=== PATIENT | female | born 1945 | race Hispanic/Latino ===

== ENCOUNTER 2019-12-26 09:12 | Observation (INO) | payer MEDICARE, OTHER ==
[~2019-12-26] VITALS: Ht 147.3 cm; Wt 40.8 kg
[~2019-12-26 09:12] MED LIST: ASCORBIC ACID500 MG PO; ASPIRIN81 MG PO; ATORVASTATIN CA10 MG PO; CLOPIDOGREL75 MG PO; Calcium Carbonate PO; FAMOTIDINE20 MG PO; FEOSOL325 MG PO; GABAPENTIN100 MG PO; JANUVIA100 MG PO; LANTUS 3ML100 UNITS/ SC; LEVOTHYROXINE75 MCG PO; LISINOPRIL2.5 MG PO; METOCLOPRAMIDE10 MG PO; METOPROLOL TART25 MG PO; Multivitamins/Minerals PO; PANTOPRAZOLE SO40 MG PO
--- OUTSIDE RECORDS SUMMARY | 2019-12-26 09:24 | XMS REPORT | Continuity of Care Document ---
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 Name Role Phone Ayi Laile Information [employer] Unavailable Un available Problems Problem Status Onset Date Classification Date Reported Comments Source R07.89 - OTHER CHEST PAIN Acti ve 08/18/2016 [facility] R92.8 - OTH ABN AND INCONCLUSIVE FINDI Active 05/27/2015 [facility] Diabetic retinopathy of both eyes associ ated with diabetes mellitus of other type, macular edema presence unspecified, unspecified retinopathy severity Active Diagnosis 01/17/2017 [id number] Gastroesophageal reflux disease, esophag itis presence not specified Active Prob nory 01/17/2017 2.840.1.150252.4.391.11.92529 Severe protein-calorie malnutrition Active Problem 2.840.1.198736.4.391.11.2 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 Active Problem 2.840.1.326254.4.391.11.2 2568 Type 2 diabetes mellitus with hyperglycemia Active Problem 01/17/2017 2.840.1.622891.4.391.11.65363 Hypothyroidism, unspecified type Active Problem 2.840.1.877609.4.391.11.2 2568 Osteoporosis without current pathologica l fracture, unspecified osteoporosis type Active Problem 01/17/2017 2.840.1.602280.4.391.11.39158 Other and unspecified hyperlipidemia Active Problem 2.16840.1.767530.4.391.11.2 2568 Hypotension, unspecified hypotension type Active Problem 01/17/2017 2.840.1.127962.4.391.11.22815 Encounter for immunization Act jennie Diagnosis 0 01/17/2017 2.16.840.1.055361.4.391.11.2 2568 Type 2 diabetes mellitus with hyperglyce mel[place], without long-term current use of insulin Active Diagnosis 12/23/2016 2.840.1.550430.4.391.11.83385 Encounter for general adult medical exam ination with abnormal findings Active Diag nosis 12/23/2016 2.840.1.762751.4.391.11.60597 BMI less than 19,adult Active Diagnosis 12/23/2016 2.0.1.808020.4.391.11.2 2568 Medications Medication Details Route Status Patient Instructions Ordering Provider Order Date Source Zantac 1 tablet at bedtime Orally Active 150 MG Orally Once a day Montez 12/19/2016 2.0.1.356839.4.391.11.42677 Naprosyn 1 tablet Orally Active 250 MG Orally Twice a d ay Montez 12/19/2016.0.1.081526.4.391.11.38392 NovoLog Flexpen Inject Subcutaneous Active 100 UNIT/ML Subcutaneous 8 units tid Montez 06.16.830.1.321608.4.391 Metoclopramide HCl 1 tablet by mouth Active 10 MG by mouth daily Montez 06.16.830.1.772307.4.391 Midodrine HCl 1 tablet Orally Active 2.5 MG Orally Three josé miguel es a day Montez 06.16.830.1.216930.4.391.11 Lantus SoloStar Inject Subcutaneous Active 100 UNIT/ML Subcutaneous 20 units in the am and 10 units in pm Montez 06.16.830.1.432379.4.391.11 Pravastatin Sodium 1 tablet Orally Active 10 MG Orally Once a day Montez 06.16.830.1.413122.4.391.11 Levothyroxine Sodium 1 tablet on an empty stomach in the morning Orally Active 88 MCG Orally Once a day Montez 06.16.830.1.025780.4.391.11.2 2568 Pantoprazole Sodium 1 tablet Orally Active 40 MG Orally Once a day Montez 2.16.840.1.004332.4.391.11.83070 Allergies, Adverse Reactions, Alerts Substance Category Reaction Severity Reaction type Status Date Reported Comments Source N.K.D.A. Adverse Reaction Info Not Available Adverse Reaction Active 01/11/2017 2..840.1.215162.4.391.11.2 2568 Immunizations Immunization Date Given Site Status Last Updated Comments Source FLU VACCINE NO PRESERV 3 & > 0 01/11/2017 completed 2..840.1.143411.4.391.11.2 2568 Results No Data Provided for This Section Pathology Reports No Data Provided for This Section Diagnostic Reports Report Value Date Source Retroperitoneal Complete US Ex am: RETROPERITONEAL ULTRASOUND. Reason for Exam: - N18.3 Chronic kidney disease, stage 3 (moderate) Comparison Exam: None Discussion: Multiplanar grayscale and color Doppler ultrasound of the kidneys, aorta, IVC, and urinary bladder. Right kidney: Size: 8.5 cm. Cortical thickness measures 0.7 cm. Hydronephrosis: None. Echogenicity: Increased Calculi/Cysts/Masses: None. Ureter: none visualized Left kidney: Size: 8.2 cm. Cortical thickness measures 1.0 cm. Hydronephrosis: None. Echogenicity: Increased Calculi/Cysts/Masses: None. Ureter: none visualized Bladder: unremarkable. Both ureteral jets are patent. IMPRESSION: Renal parenchymal echogenicity is increased bilaterally, in keeping with medical renal disease. 12/06/2019 RISHABH Bryana Ribs unilateral DX EXAM: Ribs unilateral DX HISTORY: - M54.6 Pain in thoracic spine COMPARISON: 08/18/2016 Left rib series IMPRESSION: There is a chronic healed left lateral 5th rib deformity. 11/13/2019 [facility] Spine thoracic 3 views DX EXAM : Spine thoracic 3 views DX HISTORY: - M54.6 Pain in thoracic spine COMPARISON: 03/17/2017 AP, lateral and swimmer's views of the thoracic spine. FINDINGS: There is mild to moderate diffuse disc space narrowing. Advanced C4-C7 disc space narrowing. Osteopenia. No fracture or focal osseous lesion is seen. IMPRESSION: Discogenic degenerative change. 11/13/2019 [facility] Breast Mammo Scrn JOHNSON w hattie incl CAD MA BILATERAL DIGITAL SCREENING MAMMOGRAM 3D/2D WITH CAD: 10/08/2019 CLINICAL: Z12.31 Encounter For Screening Mammogram For Malignant Neoplasm Of Breast/Z12.31 Encounter For Screening Mammogram For Malignant Neoplasm Of Breast. Current study was evaluated with a Computer Aided Detection (CAD) system. COMPARISON:Comparison is made to exams dated: 10/06/2017 mammogram, 07/15/2016 mammogram, and 06/18/2015 mammogram - [facility]. TECHNIQUE: Digital Breast Tomosynthesis was performed and utilized for Interpretation. Current study was also evaluated with a Computer Aided Detection (CAD) system. FINDINGS: There are scattered fibroglandular densities in both breasts. There are benign vascular calcifications in both breasts. No significant masses, calcifications, or other findings are seen in either breast. There has been no significant interval change. IMPRESSION: BENIGN RECOMMENDATION:There is no mammographic evidence of malignancy. A 1 year screening mammogram is recommended.(10/08/2020) This exam was interpreted at [id number] for GENEVIEVE Ware. Professional services are provided by the [facility]. Jeri Brand M.D. ms/penrad:10/08/2019 14:11:12 J[employer]Ee Software Engineer(s): RT Marla(R)(M), [facility] letter sent: BI-RADS 1/2 Mammogram BI-RADS: 2 Benign 10/08/2019 RISHABH Gonzales Bone Density DXA Dual Energy MA BONE DENSITY ASSESSMENT: 10/08/2019 CLINICAL DATA: Post menopausal and clinical risk for osteoporosis. M81.0 Age- related osteoporosis without current pathological fracture. M81.0 Age-Related Osteoporosis Without Current Pathological Fracture/M81.0 Age-Related Osteoporosis Without Current Pathological Fracture DISEASE HISTORY: Type 1 diabetes. COMPARISON: 10/06/2017 Left hip using a Hologic unit from [facility] with reported high fracture risk, BMD of 0.638g/cm2, T-score of -2.50, and Z-score of -0.70. 10/06/2017 Right hip using a Hologic uni t from [facility] with reported high fracture risk, BMD of 0.562g/cm2, T-score of -3.10, and Z-score of -1.30. 10/06/2017 AP L1-L4 region of spine chidi aguirre a Hologic unit from [facility] with reported high fracture risk, BMD of 0.643g/cm2, T-score of -3.70, and Z-score of -1.40. FINDINGS: Bone density evaluation was performed 10/08/2019 on the right femur neck using a Hologic unit. The BMD average for the exam is 0.394 g/cm2. The T-score is -4.10 and the Z-score is -2.00. This matches the World Health Organization's criteria for osteoporosis and places the patient at a high risk for fracture. An additional bone density evaluation was performed 10/08/2019 on the left femur neck using a Hologic unit. The BMD average for the exam is 0.444 g/cm2. The T- score is -3.70 and the Z-score is -1.60. This matches the World Health Organization's criteria for osteoporosis and places the patient at a high risk for fracture. An additional bone density evaluation was performed 10/08/2019 on the right hip using a Hologic unit. The BMD average for the exam is 0.531 g/cm2. The T-score is -3.40 and the Z-score is -1.40. Since the previous similar exam of 10/06/2017, there has been a -0.031 or -5.5% change in the BMD value which represents no significant interval change in bone density. This matches the World Health Organization's criteria for osteoporosis and places the patient at a high risk for fracture. An additional bone density evaluation was performed 10/08/2019 on the left hip using a Hologic unit. The BMD average for the exam is 0.570 g/cm2. The T-score is -3.00 and the Z-score is -1.10. Since the previous similar exam of 10/06/2017, there has been a -0.068 or -10.7% change in the BMD value which represents no significant interval change in bone density. This matches the World Health Organization's criteria for osteoporosis and places the patient at a high risk for fracture. An additional bone density evaluation was performed 10/08/2019 on the AP L1-L4 region of spine using a Hologic unit. The BMD average for the exam is 0.730 g/cm2. The T-score is -2.90 and the Z-score is -0.50. Since the previous similar exam of 10/06/2017, there has been a +0.087 or +13.5% change in the BMD value which represents no significant interval change in bone density. This matches the World Health Organization's criteria for osteoporosis and places the patient at a high risk for fracture. IMPRESSION: OSTEOPOROSIS Patient is at high risk for fracture. Patient consult w/primary care provider is recommended. This exam was interpreted at [id number] for GENEVIEVE Ware. Jeri Brand M.D. ms/penrad:10/08/2019 14:09:48 J2Ee Software Engineer(s): Kat Worrell RT(R)(M), [facility] 10/08/2019 RISHABH Gonzales Bone Density DXA [employer] MA BONE DENSITY ASSESSMENT: 10/06/2017 CLINICAL DATA: Post menopausal and clinical risk for osteoporosis. M81.0 Age- related osteoporosis without current pathological fracture. Age-Related Osteoporosis Without Current Pathological Fracture/M81.0 COMPARISON: 03/18/2016 Right hip using a Hologic uni t from [facility] with reported high fracture risk, BMD of 0.549g/cm2, T-score of -3.20, and Z-score of -1.50. 03/18/2016 Left hip using a Hologic unit from [facility] with reported high fracture risk, BMD of 0.618g/cm2, T-score of -2.70, and Z-score of -1.00. 03/18/2016 AP L1-L4 region of spine usin g a Hologic unit from [facility] with reported high fracture risk, BMD of 0.656g/cm2, T-score of -3.60, and Z-score of -1.30. FINDINGS: Bone density evaluation was performed 10/06/2017 on the right femur neck using a Hologic unit. The BMD average for the exam is 0.461 g/cm2. The T-score is -3.50 and the Z-score is -1.50. This matches the World Health Organization's criteria for osteoporosis and places the patient at a high risk for fracture. An additional bone density evaluation was performed 10/06/2017 on the left femur neck using a Hologic unit. The BMD average for the exam is 0.475 g/cm2. The T- score is -3.40 and the Z-score is -1.40. This matches the World Health Organization's criteria for osteoporosis and places the patient at a high risk for fracture. An additional bone density evaluation was performed 10/06/2017 on the right hip using a Hologic unit. The BMD average for the exam is 0.562 g/cm2. The T-score is -3.10 and the Z-score is -1.30. Since the previous similar exam of 03/18/2016, there has been a +0.013 or +2.4% change in the BMD value which represents no significant interval change in bone density. This matches the World Health Organization's criteria for osteoporosis and places the patient at a high risk for fracture. An additional bone density evaluation was performed 10/06/2017 on the left hip using a Hologic unit. The BMD average for the exam is 0.638 g/cm2. The T-score is -2.50 and the Z-score is -0.70. Since the previous similar exam of 03/18/2016, there has been a +0.020 or +3.2% change in the BMD value which represents no significant interval change in bone density. This matches the World Health Organization's criteria for osteoporosis and places the patient at a high risk for fracture. An additional bone density evaluation was performed 10/06/2017 on the AP L1-L4 region of spine using a Hologic unit. The BMD average for the exam is 0.643 g/cm2. The T-score is -3.70 and the Z-score is -1.40. Since the previous similar exam of 03/18/2016, there has been a -0.013 or -2.0% change in the BMD value which represents no significant interval change in bone density. This matches the World Health Organization's criteria for osteoporosis and places the patient at a high risk for fracture. IMPRESSION: OSTEOPOROSIS Patient is at high risk for fracture. Patient consult w/primary care provider is recommended. This exam was interpreted at [id number] at [facility]. Jeri Brand M.D., ms/alireza:10/06/2017 11:56:01 J2Ee Software Engineer(s): Kat Worrell RT(R)(M), [facility] 10/06/2017 RISHABH Gonzales Breast Mammo Scrn JOHNSON incl CAD MA BILATERAL DIGITAL SCREENING MAMMOGRAM WITH CAD: 10/06/2017 CLINICAL: Encounter For Screening Mammogram For Malignant Neoplasm Of Breast/Z12.31. Current study was evaluated with a Computer Aided Detection (CAD) system. COMPARISON:Comparison is made to exams dated: 07/15/2016 mammogram, 06/18/2015 mammogram, and 03/13/2014 mammogram - [facility]. TECHNIQUE: Mammographic views were obtained using digital acquisition. Current study was also evaluated with a Computer Aided Detection (CAD) system. FINDINGS: The tissue of both breasts is almost entirely fat. No significant masses, calcifications, or other findings are seen in either breast. There has been no significant interval change. IMPRESSION: NEGATIVE RECOMMENDATION:There is no mammographic evidence of malignancy. A 1 year screening mammogram is recommended.(10/07/2018) This exam was interpreted at [id number] at [facility]. Professional services are provided by the [facility]. Mariah Knox M.D. 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 Sagittal and coronal reconstructions are provided. AEC, mA/kV adjustment by patient size, and/or iterative reconstruction technique were used, per departmental dose-optimization program. DLP: 351 mGy-cm FINDINGS: Lines and tubes: None Lower neck: Visualized portions are unremarkable. Heart: Three-vessel coronary artery calcifications. No cardiomegaly. No pericardial effusion. Lungs: The trachea and major bronchi are patent. There are mild bilateral dependent atelectatic changes. The lungs are otherwise clear. There is no pleural effusion. Liver and biliary tree: Unremarkable Gallbladder: Unremarkable. No CT evidence of gallstones. Pancreas: Unremarkable. Spleen: Unremarkable. Adrenals: Unremarkable. Kidneys and ureters: Punctate bilateral nonobstructing renal calculi. Otherwise unremarkable. No hydronephrosis. Bladder: Unremarkable. Reproductive organs: Hysterectomy. Unremarkable adnexa. Gastrointestinal tract: Unremarkable with normal caliber. Appendix: Normal Peritoneum and retroperitoneum: No ascites or free air. Lymph nodes: No pathologic adenopathy. Vasculature: Moderate vascular calcification throughout Bones: No acute abnormality. Soft tissues: Moderately edematous. Marked pelvic floor muscular thinning with descent of all 3 compartments. IMPRESSION: 1. Diffuse soft tissue edema. Correlate clinically. 2. Nonobstructing nephrolithiasis. 3. Hysterectomy. 03/28/2017 OPI[facility]azmine [facility] Spine lumbar series DX EXAM: [facility] lumbar series DX HISTORY: - M54.5 Low back pain COMPARISON: 08/12/2011 AP, lateral and oblique views of the lumbar spine. AP alignment is normal. There is no vertebral body height loss. The bones appear osteopenic. There is mild to moderate disc space narrowing and facet arthropathy at L5-S1. Partial sacralization of L5 again noted. IMPRESSION: No acute radiographic abnormality. Lumbosacral degenerative change. 03/17/2017 [facility] [place] Spine thoracic 3 views DX EXAM : Spine thoracic 3 views DX HISTORY: - M54.5 Low back pain COMPARISON: None AP and lateral views of the thoracic spine. FINDINGS: No vertebral body height loss is seen. There is mild to moderate multilevel discogenic degenerative change throughout the thoracic spine and the visualized cervical spine. No focal osseous lesion is seen. AP alignment is normal. IMPRESSION: Mild to moderate discogenic degenerative changes throughout the thoracic spine. 03/17/2017 [facility] Hip 2/3 views uni DX Exam: Ri t hip x-ray, 2 views Reason for Exam: - M25.551 Pain in right hip Comparison Exam: None Discussion: No fractures or dislocations are seen within the right hip. No suspicious osteoblastic or osteolytic lesions. The femoral acetabular joint is intact. No evidence for avascular necrosis of the femoral head. The visualized portions of the pubic symphysis and SI joint are unremarkable. Impression: 1. No acute bony abnormalities identifi ed. 12/13/2016 RISHABH Gonzales Ribs unilateral DX EXAM: Ribs unilateral DX HISTORY: R07.89 Other chest pain, R/o rib cage pathology/pain COMPARISON: None Left rib series. IMPRESSION: No rib fracture or rib lesion is seen. The visualized lungs are clear. 08/18/2016 RISHABH Gonzales Breast Mammo Scrn JOHNSON incl CAD MA - BREAST MAMMO SCRN JOHNSON INCL CAD MA BILATERAL DIGITAL SCREENING MAMMOGRAM WITH CAD: 07/15/2016 CLINICAL: Routine. Current study was evaluated with a Computer Aided Detection (CAD) system. Comparison is made to exams dated: 06/18/2015 mammogram, 03/13/2014 mammogram, 08/12/2013 mammogram, 02/06/2013 mammogram, 01/11/2013 mammogram and 11/25/2011 mammogram - [facility]. There are scattered fibroglandular densities in both breasts. There are benign vascular calcifications in both breasts. There also is a benign intramammary node in the left breast. No significant masses, calcifications, or other findings are seen in either breast. There has been no significant interval change. IMPRESSION: BENIGN There is no mammographic evidence of malignancy. A 1 year screening mammogram is recommended. Professional services are provided by the [facility]. Marc archibald/penrad:07/15/2016 14:01:12 J2Ee Software Engineer: Kat BOBO(R)(M), [facility] This exam was dictated and interpreted by [id number] for GENEVIEVE Everett. letter sent: Normal exam Mammogram BI-RADS: 2 Benign 07/15/2016 RISHABH Gonzales Foot series DX EXAMINATION: Le ft foot series. HISTORY: Lateral left foot pain status post trauma; left fourth toe osteoarthritis FINDINGS: 3 view nonweightbearing examination of the left foot is performed and compared to 11/10/2014. There are no acute fractures or dislocations. There are apparent postoperative changes of interval resection arthroplasty at the distal interphalangeal joint of the fourth toe. The remaining joint spaces are normal. There is no ankle effusion. There are no radiopaque foreign bodies identified. IMPRESSION: 1. No acute fracture or dislocation of t he left foot. 2. Apparent postoperative changes of int erval resection arthroplasty at the left fourth toe distal interphalangeal joint. 04/01/2016 RISHABH Gonzales Bone Density DXA [employer] MA - Bone Density DXA [employer] MA BONE DENSITY EVALUATION: 03/18/2016 CLINICAL DATA: Post menopausal. FINDINGS: Bone density evaluation was performed 03/18/2016 on the AP L1-L4 region of spine using a Hologic unit. The BMD average for the exam is 0.656 g/cm2. The T-score is -3.60 and the Z-score is -1.30. This matches the World Health Organization's criteria for osteoporosis and places the patient at a high risk for fracture. An additional bone density evaluation was performed 03/18/2016 on the right femur neck using a Hologic unit. The BMD average for the exam is 0.382 g/cm2. The T-score is -4.20 and the Z-score is -2.30. This matches the World Health Organization's criteria for osteoporosis and places the patient at a high risk for fracture. An additional bone density evaluation was performed 03/18/2016 on the right hip using a Hologic unit. The BMD average for the exam is 0.549 g/cm2. The T-score is -3.20 and the Z-score is -1.50. This matches the World Health Organization's criteria for osteoporosis and places the patient at a high risk for fracture. An additional bone density evaluation was performed 03/18/2016 on the left femur neck using a Hologic unit. The BMD average for the exam is 0.436 g/cm2. The T- score is -3.70 and the Z-score is -1.80. This matches the World Health Organization's criteria for osteoporosis and places the patient at a high risk for fracture. An additional bone density evaluation was performed 03/18/2016 on the left hip using a Hologic unit. The BMD average for the exam is 0.618 g/cm2. The T-score is -2.70 and the Z-score is -1.00. This matches the World Health Organization's criteria for osteoporosis and places the patient at a high risk for fracture. IMPRESSION: OSTEOPOROSIS Patient is at high risk for fracture. Professional services are provided by the [facility]. This exam was dictated and interpreted by [id number] for BRENDA Ware 15. Mariano Gambino M.D. cm/penrad:03/21/2016 09:26:50 J2Ee Software Engineer: Daya BOBO (R)(Beverley), [facility] 03/18/2016 RISHABH Gonzales Digital Mammo DX Johnson MA - DIGI RONAK MAMMO DX JOHNSON MA BILATERAL DIGITAL DIAGNOSTIC MAMMOGRAM WITH CAD: 06/18/2015 CLINICAL: Abnormal Mammogram. Current study was evaluated with a Computer Aided Detection (CAD) system. Comparison is made to exams dated: 03/13/2014 mammogram, 08/12/2013 mammogram, 02/06/2013 mammogram, 11/25/2011 mammogram, 01/11/2013 mammogram and 11/04/2010 mammogram - [facility]. There are scattered fibroglandular densities in both breasts. There are benign vascular calcifications in both breasts. There also is a benign intramammary node in the left breast. No significant masses, calcifications, or other findings are seen in either breast. There has been no significant interval change. IMPRESSION: BENIGN There is no mammographic evidence of malignancy. A 1 year screening mammogram is recommended. Mariano Gambino M.D., cm/penrad:06/18/2015 11:19:32 J2Ee Software Engineer: Daya BOBO (R)(Beverley), [facility] This exam was dictated and interpreted by [id number] for Janet. letter sent: Normal exam Mammogram BI-RADS: 2 Benign 06/18/2015 RISHABH Gonzales Bone Density DXA Dual [employer] MA - Bone Density DXA Dual Energy MA BONE DENSITY EVALUATION: 11/13/2014 CLINICAL DATA: Post menopausal. COMPARISON: 11/25/2011 Right hip using Nov[employer] Dual En ergy X-Ray Absorptiometry from [facility] with reported high fracture risk, BMD of 0.634g/cm2, T-score of -3.00, Z-score of -1.20 and 81.0% age-match bone mineralization. 11/25/2011 Left hip using Novogenie Dual Purnima rgy X-Ray Absorptiometry from [facility] with reported medium fracture risk, BMD of 0.700g/cm2, T-score of -2.40, Z-score of -0.60 and 90.0% age-match bone mineralization. 11/25/2011 AP L1-L4 region of spine usin g [employer] X-Ray [employer]orptiometry from [facility] with reported high fracture risk, BMD of 0.805g/cm2, T-score of -3.10, Z-score of -0.80 and 89.0% age-match bone mineralization. FINDINGS: Bone density evaluation was performed 11/13/2014 on the AP L1-L4 region of spine using [employer] X-Ray Absorptiometry. The BMD average for the exam is 0.859 g/cm2. The T-score is -2.70 and the Z-score is -0.20. These values indicate 97.0% for age-matched controls. Since the previous similar exam of 11/25/2011, there has been a +0.054 or +6.7% change in the BMD value which represents no significant interval change in bone density. This matches the World Health Organization's criteria for osteoporosis and places the patient at a high risk for fracture. An additional bone density evaluation was performed 11/13/2014 on the right femur neck using [employer] X-Ray Absorptiometry. The BMD average for the exam is 0.500 g/cm2. The T-score is -3.90 and the Z-score is -1.60. These values indicate 69.0% for age-matched controls. This matches the World Health Organization's criteria for osteoporosis and places the patient at a high risk for fracture. An additional bone density evaluation was performed 11/13/2014 on the right hip using [employer] X-Ray Absorptiometry. The BMD average for the exam is 0.587 g/cm2. The T-score is -3.30 and the Z-score is -1.30. These values indicate 79.0% for age-matched controls. Since the previous similar exam of 11/25/2011, there has been a -0.047 or -7.4% change in the BMD value which represents no significant interval change in bone density. This matches the World Health Organization's criteria for osteoporosis and places the patient at a high risk for fracture. An additional bone density evaluation was performed 11/13/2014 on the left femur neck using [employer] X-Ray Absorptiometry. The BMD average for the exam is 0.568 g/cm2. The T-score is -3.40 and the Z-score is -1.10. These values indicate 78.0% for age-matched controls. This matches the World Health Organization's criteria for osteoporosis and places the patient at a high risk for fracture. An additional bone density evaluation was performed 11/13/2014 on the left hip using [employer] X-Ray Absorptiometry. The BMD average for the exam is 0.657 g/cm2. The T-score is -2.80 and the Z-score is -0.70. These values indicate 88.0% for age-matched controls. Since the previous similar exam of 11/25/2011, there has been a -0.043 or -6.1% change in the BMD value which represents no significant interval change in bone density. This matches the World Health Organization's criteria for osteoporosis and places the patient at a high risk for fracture. IMPRESSION: OSTEOPOROSIS Patient is at high risk for fracture. This exam was dictated and interpreted by [id number] for GENEVIEVE Everett. Dr. Christos stock/penrad:11/13/2014 16:46:25 J2Ee Software Engineer: Kat Worrell [facility] 11/13/2014 RISHABH Gonzales Foot series DX EXAM: Foot seri es HISTORY: Left 4th toe edema and pain COMPARISON: None IMPRESSION: There is soft tissue swelling involving the left fourth toe. No periosteal reaction or fracture is identified. 11/10/2014 RISHABH Gonzales Hip bilat w pelvis and both lat hips DX EXAM: Hip bilateral w pelvis and both lat hips HISTORY: Pain hip COMPARISON: None Kidneys of each hip. FINDINGS: There is no significant joint space narrowing bilaterally. No evidence of avascular necrosis. No fracture is seen. No concerning osseous lesion. The pelvic ring appears intact. Vascular calcifications are seen bilaterally. IMPRESSION: No acute abnormality. 11/10/2014 RISHABH Gonzales Breast US - DIGITAL MAMMO DX B [place] - BREAST US/L BILATERAL DIGITAL DIAGNOSTIC MAMMOGRAM WITH CAD AND TARGETED LEFT ULTRASOUND: 03/13/2014 CLINICAL: 611.72: Follow up for a probably benign left breast finding. Current study was evaluated with a Computer Aided Detection (CAD) system. Comparison is made to exams dated: 01/11/2013 mammogram, 02/06/2013 mammogram, 02/06/2013 ultrasound, 08/12/2013 ultrasound, 08/12/2013 mammogram and 08/12/2013 ultrasound - [facility]. There are scattered fibroglandular densities in both breasts. There is a stable mass in the left axillary tail. Targeted ultrasound demonstrates a 4 mm stable oval mass in the left axillary tail. Query lymph node. This correlates with mammography findings. No other significant masses, calcifications, or other findings are seen in either breast on the mammogram or targeted ultrasound. IMPRESSION: PROBABLY BENIGN, TARGETED ULTRASOUND PROBABLY BENIGN The 4 mm stable oval mass is probably benign. Query lymph node. A follow-up mammogram and an ultrasound in 12 months is recommended. SUMMARY: I notified the patient of the results and their significance at the completion of today's examination. Dr. Linsey Fraga D.O. ht/:03/13/2014 10:50:32 J2Ee Software Engineer: Monique Hopson RT(R)(M), [facility] This exam was dictated and interpreted by [id number] for Janet. letter sent: Followup Mammogram BI-RADS: 3 Probably benign Ultrasound BI-RADS: 3 Probably benign 03/13/2014 RISHABH Gonzales Digital Mammo DX [place] - DIGI RONAK MAMMO DX [place] - BREAST US/L BILATERAL DIGITAL DIAGNOSTIC MAMMOGRAM WITH CAD AND TARGETED LEFT ULTRASOUND: 03/13/2014 CLINICAL: 611.72: Follow up for a probably benign left breast finding. Current study was evaluated with a Computer Aided Detection (CAD) system. Comparison is made to exams dated: 01/11/2013 mammogram, 02/06/2013 mammogram, 02/06/2013 ultrasound, 08/12/2013 ultrasound, 08/12/2013 mammogram and 08/12/2013 ultrasound - [facility]. There are scattered fibroglandular densities in both breasts. There is a stable mass in the left axillary tail. Targeted ultrasound demonstrates a 4 mm stable oval mass in the left axillary tail. Query lymph node. This correlates with mammography findings. No other significant masses, calcifications, or other findings are seen in either breast on the mammogram or targeted ultrasound. IMPRESSION: PROBABLY BENIGN, TARGETED ULTRASOUND PROBABLY BENIGN The 4 mm stable oval mass is probably benign. Query lymph node. A follow-up mammogram and an ultrasound in 12 months is recommended. SUMMARY: I notified the patient of the results and their significance at the completion of today's examination. Dr. Linsey Fraga D.O. ht/:03/13/2014 10:50:32 J2Ee Software Engineer: Monique Hopson RT(R)(M), [facility] This exam was dictated and interpreted by [id number] for GENEVIEVE Gonzales. letter sent: Followup Mammogram BI-RADS: 3 Probably benign Ultrasound BI-RADS: 3 Probably benign 03/13/2014 RISHABH Gonzales Bowel small bowel series SMALL BOWEL FOLLOW-THROUGH CLINICAL HISTORY: Diarrhea, weight loss TECHNIQUE: Antegrade single contrast exam with barium oral contrast. FLUOROSCOPY TIME: 10 seconds. FINDINGS: Activities Director Scouting radiograph demonstrates a nonobstructive bowel gas pattern. Moderate stool is noted. Contrast examination is unremarkable. No fistula, fold thickening, extrinsic mass effect, abnormal dilatation, or persistent filling defects. Terminal ileum is widely patent. Small bowel transit time is within normal limits. Gastroesophageal reflux noted on the 15 minute film. IMPRESSION: Gastroesophageal reflux. 10/07/2013 RISHABH Gonzales Consultation Notes No Data Provided for This Section Discharge Summaries No Data Provided for This Section History and Physicals No Data Provided for This Section Vital Signs Vital Sign Value Date Comments Source Weight 83.4 01/11/2017 [id number] 2568 Height 56.3 01/11/2017 [id number] 2568 Temperature Oral (F) 98.2 F 01/11/2017 [id number] Heart Rate 78 01/11/2017 2.16.840.1.949339.4.391.11.2 2568 Diastolic (mm Hg) 48 01/11/2017 2.16.840.1.649978.4.391.11.22525 Systolic (mm Hg) 112 01/11/2017 2.16.840.1.956777.4.391.11.02427 Weight 85.3 12/19/2016 2.16.840.1.338331.4.391.11.2 2568 Height 56.3 12/19/2016 2.16.840.1.517352.4.391.11.2 2568 Temperature Oral (F) 97.9 F 12/19/2016 2.16.840.1.924772.4.391.11.48173 Heart Rate 76 12/19/2016 2.16.840.1.616371.4.391.11.2 2568 Diastolic (mm Hg) 59 12/19/2016 [id number] Systolic (mm Hg) 143 12/19/2016 [id number] Encounters Location Location Details Encounter Type Encounter Number Reason For Visit Attending Provider ADM Date DC Date Status Source [facility] [place] [facility] [id number] 10 Nicolas Neri 10/07/2013 10/08/2013 [facility] [place] [facility] [place] [facility] [id number] 11 Deyvi Flanagan 03/13/2014 03/14/2014 [facility] [place] [facility] [place] [facility] [id number] 12 Deyvi Flanagan 11/10/2014 11/11/2014 [facility] [place] [facility] [place] [facility] [id number] 13 Deyvi Flanagan 11/13/2014 11/14/2014 [facility] [place] [facility] [place] [facility] [id number] 14 Deyvi Flanagan 06/18/2015 06/19/2015 [facility] [place] [facility] [place] [facility] [id number] 15 Deyvi Flanagan 03/18/2016 03/19/2016 [facility] [place] [facility] [place] [facility] [id number] 16 Deyvi Flanagan 04/01/2016 04/02/2016 MH [facility] [place] [facility] [place] [facility] [id number] 17 Deyvi Flanagan 07/15/2016 07/16/2016 [facility] [place] [facility] [place] [facility] [id number] 18 Deyvi Robledolar 08/18/2016 08/19/2016 [facility] [place] [facility] [place] [facility] [id number] 19 Deyvi Flanagan 12/13/2016 12/14/2016 [facility] [place] [facility] [place] [facility] [id number] 20 Deyvi Flanagan 03/17/2017 03/18/2017 [facility] [place] [facility] [place] [facility] [id number] 21 Deyvi Flanagan 03/28/2017 03/29/2017 [facility] [place] [facility] [place] [facility] [id number] 22 Deyvi Flanagan 10/06/2017 10/07/2017 [facility] [place] [facility] [place] [facility] [id number] 23 Deyvi Flanagan 10/08/2019 10/09/2019 [facility] [place] [facility] [place] [facility] [id number] 24 Deyvi Flanagan 11/13/2019 11/14/2019 [facility] [place] [facility] [place] [facility] [id number] 25 Deyvi Robledolar 12/06/2019 12/07/2019 [facility] [place] Procedures No Data Provided for This Section Assessment and Plan No Data Provided for This Section Plan of Care No Data Provided for This Section Social History Social History Date Source Social History TypeResponse 12/07/2019 MH [facility] [place] Family History No Data Provided for This Section Advance Directives No Data Provided for This Section Functional Status No Data Provided for This Section
--- OUTSIDE RECORDS SUMMARY | 2019-12-26 09:24 | XMS REPORT | Continuity of Care Document ---
Author Author [facility] t Organization [facility] Address [address] [place] [address] Phone Unavailable Care Team Providers Care Arc Cutter Name Role Phone Flanagan, Emilia Deyvi Attphys Jeanne RASMUSSEN Attphys Unavailable Jazmine JANSEN Attphys Unavailable Chirag Neri Attphys Payers Payer Name Policy Type Policy Number Effective Date Expiration Date S ource Problems Condition Name Condition Details Condition Category Status Onset Date Resolution Date Last Treatment Date Treating Clinician Comments Source R07.89 - OTHER CHEST PAIN R07. 89 - OTHER CHEST PAIN Active 08/18/2016 [facility] [place] Diagnosis Active 2016-08-18 00:01:00 2016-08-25 14:01:00 Renay Rapp R92.8 - OTH ABN AND INCONCLUSIVE FINDI R92.8 - OTH ABN AND INCONCLUSIVE FINDI Active 05/27/2015 [facility] [place] Diagnosis Active 2015-05-27 00:01:00 2015-06-18 10:44:00 M gayla Rapp Diabetic retinopathy of both eyes associ ated with diabetes mellitus of other type, macular edema presence unspecified, unspecified retinopathy severity Diabetic retinopathy of both eyes associated with diabetes mellitus of other type, macular edema presence unspecified, unspecified retinopathy severity Active Diagnosis 01/17/2017 [id number] Diagnosis Active 2017-01-17 02:47:03 Renay Rapp Gastroesophageal reflux disease, esophagitis presence not specified Gastroesophageal reflux disease, esophagitis presence not specified Active Problem 01/17/2017 [id number] Problem Active 2017-01-17 02:47:03 Renay Rapp Severe protein-calorie malnutrition Severe protein- calorie malnutrition Active Problem 01/17/2017 [id number] Problem Active 2017-01-17 02:47:03 Renay Rapp detention current use of insulin watermaster current use of insulin Active Problem 01/17/2017 2..[id number] Problem Active 2017-01-17 02:47:03 Marcelino Rapp Type 2 diabetes mellitus with hyperglycemia Type 2 diabetes mellitus with hyperglycemia Active Problem 01/17/2017 [id number] Problem Active 2017-01-17 02:47:03 Renay Rapp Hypothyroidism, unspecified type Hypothyroidism, unspecified type Active Problem 01/17/2017 2..[id number] Problem Active 2017-01-17 02:47:03 Renay Rapp Osteoporosis without current pathologica l fracture, unspecified osteoporosis type Osteoporosis wit hout current pathological fracture, unspecified osteoporosis type Active Problem 01/17/2017 2.16.840.1.354356.4.391.11.43901 Problem Active 2017-01-17 02:47:03 Farrukh Rapp Other and unspecified hyperlipidemia Other and unspecified hyperlipidemia Active Problem 01/17/2017 2.16.840.1.243272.4.391.11.31063 Problem Active 2017-01-17 02:47:03 Farrukh Rapp Hypotension, unspecified hypotension type Hypotension, unspecified hypotension type Active Problem 01/17/2017 [id number] Problem Active 2017-01-17 02:47:03 Farrukh Rapp Encounter for immunization Enc ounter for immunization Active Diagnosis 01/17/2017 [id number] Diagnosis Active 2017-01-17 02:47:03 [facility] Encounter for general adult medical examination with a bnormal findings Encounter for general adult medical examination with abnormal findings Active Diagnosis 12/23/2016 [id number] Diagnosis Active 2016-12-23 02:47:16 [facility] BMI less than 19,adult BMI less than 19,adult Active Diagnosis 12/23/2016 [id number] Diagnosis Active 2016-12-23 02:47:16 [facility] Allergies, Adverse Reactions, Alerts Allergy Name Allergy Type Status Severity Reaction(s) Onset Date Inacti ve Date Treating Clinician Comments Source N.Les StanfordA. Active Info Not Available 2017-01-11 00:00:00 [facility] No Known Allergies DA Active U 2015-10-07 00:00:00 [facility] Medications Ordered Medication Name Filled Medication Name Start Date Stop Da te Current Medication? Ordering Clinician Indication Dosage Frequency Signature (SIG) Comments Components Source NovoLog Flexpen 2017-01-17 02:47:03 Yes Stephen Montez Inject [facility] Metoclopramide HCl 2017-01-17 02:47:03 Yes Stephen Montez 1 tablet [facility] Midodrine HCl 2017-01-17 02:47:03 Yes Stephen Montez 1 tablet [facility] Lantus SoloStar 2017-01-17 02:47:03 Yes Stephen Montez Inject [facility] Pravastatin Sodium 2017-01-17 02:47:03 Yes Stephen Montez 1 tablet [facility] Levothyroxine Sodium 2017-01-17 02:47:03 Yes Stephen Epi ed 1 tablet on an empty stomach in the morning [facility] Pantoprazole Sodium 2017-01-17 02:47:03 Yes Stephen Montez 1 tablet [facility] Zantac 2016-12-19 00:00:00 Yes Stephen Montez 1 ta blet at bedtime [facility] Naprosyn 2016-12-19 00:00:00 Yes Stephen Montez 1 tablet [facility] Vital Signs Vital Name Observation Time Observation Value Comments Source Weight 2017-01-11 15:45:00 [facility] Height 2017-01-11 15:45:00 [facility] Temperature Oral (F) 2017-01-11 15:45:00 98.2 F [facility] Heart Rate 2017-01-11 15:45:00 [facility] Diastolic (mm Hg) 2017-01-11 15:45:00 [facility] Systolic (mm Hg) 2017-01-11 15:45:00 [facility] [place] Weight 2016-12-19 15:30:00 [facility] Height 2016-12-19 15:30:00 [facility] Temperature Oral (F) 2016-12-19 15:30:00 97.9 F [facility] Heart Rate 2016-12-19 15:30:00 [facility] Diastolic (mm Hg) 2016-12-19 15:30:00 [facility] [place] Systolic (mm Hg) 2016-12-19 15:30:00 [facility] Procedures This patient has no known procedures. Encounters Start Date/Time End Date/Time [facility] Source 2019-12-06 10:36:00 2019-12-06 23:59:00 Outpatient Deyvi Flanagan [facility] [id number] 2019-11-13 10:59:00 2019-11-13 23:59:00 Outpatient Deyvi Flanagan [facility] [id number] 2019-10-08 10:11:00 2019-10-08 23:59:00 Outpatient Deyvi Flanagan [facility] [id number] 2017-10-06 07:46:00 2017-10-06 23:59:00 Outpatient Deyvi Flanagan [facility] [id number] 2017-03-28 08:48:00 2017-03-28 23:59:00 Outpatient FlanaganDeyvi fenton [facility] M[facility] [id number] 2017-03-17 16:00:00 2017-03-17 23:59:00 Outpatient FlanaganDeyvi fenton E [facility] M[facility] [id number] 2017-01-11 10:45:00 2017-01-11 10:45:00 Outpatient [facility] [place] [id number] eClinicalWork s 2016-12-19 10:30:00 2016-12-19 10:30:00 Outpatient [facility] [place] [id number] eClinicalWork s 2016-12-13 12:25:00 2016-12-13 23:59:00 Outpatient FlanaganDeyvi fenton E [facility] M[facility] [id number] 2016-08-18 11:18:00 2016-08-18 23:59:00 Outpatient Deyvi Flanagan E [facility] M[facility] [id number] 2016-07-15 09:32:00 2016-07-15 23:59:00 Outpatient FlanaganDeyvi fenton E [facility] M[facility] [id number] 2016-04-01 10:44:00 2016-04-01 23:59:00 Outpatient Deyvi Flanagan [facility] [id number] 2016-03-18 07:59:00 2016-03-18 23:59:00 Outpatient Deyvi Flanagan [facility] [id number] 2015-06-18 10:34:00 2015-06-18 23:59:00 Outpatient Deyvi Flanagan [facility] [id number] 2014-11-13 09:33:00 2014-11-13 23:59:00 Outpatient FlanaganDeyvi fenton E [facility] M[facility] [id number] 2014-11-10 09:00:00 2014-11-10 23:59:00 Outpatient Deyvi Flanagan [facility] [id number] 2014-03-13 09:06:00 2014-03-13 23:59:00 Outpatient Deyvi Flanagan [facility] MH[facility] [id number] 2013-10-07 08:59:00 2013-10-07 23:59:00 Outpatient Nicolas Neri [facility] [id number] Results Test Description Test Time Test Comments Results Result Comments Source GLUBED 2019-09-09 03:57:00 Test Item GLUBED (test code = GLUBED) 245 mg/dL 74-106 H Performed by certified buffer operator at [facility] URINALYSIS [id number] 03:34:00* Test Item Value Reference Range Interpretation Comments UA COLOR (test code = COLU) COLORLESS YELLOW A UA APPEARANCE (test code = APPU) CLEAR CLEAR UA GLUCOSE DIPSTICK (test code = DGLUU) 500 (3+) mg/dL NEGATIVE A UA BILIRUBIN DIPSTICK (test code = BILU) NEGATIVE mg/dL NEGATIVE UA KETONE DIPSTICK (test code = KETU) NEGATIVE mg/dL NEGATIVE UA SPECIFIC GRAVITY (test code = SGU) 1.008 1.001-1.035 UA BLOOD DIPSTICK (test code = JEANNIE) Negative mg/dL NEGATIVE UA PH DIPSTICK (test code = REINA) 6.5 5.0-8.0 UA PROTEIN DIPSTICK (test code = PROU) 30 (1+) mg/dL NEGATIVE A UA UROBILINIOGEN DIPSTICK (test code = URO) Normal mg/dL NEGATIVE UA NITRITE DIPSTICK (test code = HUE) NEGATIVE NEGATIVE UA LEUKOCYTE ESTERASE W REFLEX (test code = LEUUR) NEGATIVE Mai/uL NEGATIVE UA WBC (test code = WBCU) 0-5 per HPF 0-5 UA RBC (test code = RBCU) 0-2 #/HPF 0-5 UA EPITHELIAL CELLS (test code = EPIU) FEW per HPF FEW UA BACTERIA (test code = BACU) FEW #/HPF NONE A UA MUCUS (test code = MUCU) FEW #/LPF FEW Urine Source? Clean Catch- CT C-SPINE W/O [id number] 02:31:00 Name: PEREZ VELAZQUEZ [facility] : 1945 Age/S: 74 / F [address] Unit #: [id number] Loc: [place] [address] Phys: Pepito Singh MD Acct: [id number] Di s Date: Status: REG ER PHONE #: Exam Date: 09/09/2019 021 FAX #: Reason: dizzy fall EXAMS: CPT CODE: [id number] CT C-SPINE W/O CONTRAST [id number] EXAM: - CT C-SPINE W/O C ONTRAST HISTORY: Fall. TECHNIQUE: Axial tomograms th rough the cervical spine were obtained without intravenous contrast. Sagit brigida and coronal reformatted images are provided. This exam was perfo rmed according to our departmental dose-optimization program, which includ es automated exposure control, adjustment of the mA and/or kV according to patient size and/or use of iterative reconstruction technique. COMPARISON: None available time of interpretation. FINDINGS: Vertebral heights and alignment are maintained. No acute fracture or subluxation. The prevertebral soft tissues are within normal limits. The visualized soft tissues of the neck show no significant abnormalities. Degenerative disc disease and facet arthropathy is present at multiple levels. IMPRESSION: No acute osseous abnormal ity with other findings as above. at 0231 Reported and signed by: Michel Car MD CC: Deyvi Flanagan; Saul Singh MD Technologist:BOO VENTURA CTDI: DLP: Trnscb Date/Time: 09/09/2019 (023) [email or web address] Orig Print D/T: S: 09/09/2019 (0234) PAGE 1 Signed Report - CT HEAD/BRAIN W/O [id number] 02:24:00 Name: PEREZ VELAZQUEZ [facility] : 1945 Age/S: 74 / F [address] Unit [address]: [id number] Loc: [place] [address] Phys: Pepito Singh MD Acct: [id number] Di s Date: Status: REG ER PHONE #: Exam Date: 09/09/2019210 FAX #: [phone] Reason: dizzy fall EXAMS: CPT CODE: [id number] CT HEAD/BRAIN W/O CONT 04886 EXAM: - CT HEAD/BRAIN W/O CONT HISTORY: Dizziness, fall. TECHNIQUE: Axial to mograms through the brain were obtained without intravenous contrast. This exam was performed according to our departmental dose-optimization program, which includes automated exposure control, adjustment of the mA a nd/or kV according to patient size and/or use of iterative reconstruction technique. COMPARISON: February 29, 2016. FINDINGS: There is no intracranial hemorrhage, mass, or mass effect. The ventricular system and sulci are age-appropriate. 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 There is no significant change compared to previous exam. The osseous structures and orbits, show no significant a bnormalities. The visualized sinuses are relatively clear. The sof t tissues are unremarkable. IMPRESSION: No luis miguel dence of acute intracranial hemorrhage. Electronically Sig yoshi by Michel Car MD on 09/09/2019 at 0224 Reported and signed by: Michel Car MD CC: Deyvi Flanagan; Augie Singh MD Technologist:BOO CHAN CT CTDI: DLP: Trnscb Date/Time: 09/09/2019 (223) [email or web address] Orig Print D/T: S: 09/09/2019 (227) PAGE 1 Signed Report [id number] 01:56:00* Test Item Value Reference Range Interpretation Comments TROPONIN-I (test code = TROPI) <0.015 ng/mL 0-0.045 N BASIC METABOLIC [id number] 01:52:00* Test Item Value Reference Range Interpretation Comments SODIUM (test code = NA) 137 mmol/L 136-145 N POTASSIUM (test code = K) 4.0 mmol/L 3.5-5.1 N CHLORIDE (test code = CL) 106.0 mmol/L 98-107 N CARBON DIOXIDE (test code = CO2) 27.0 mmol/L 21-32 N ANION GAP (test code = GAP) 8.0 10-20 L GLUCOSE (test code = GLU) 202 mg/dL 74-106 H BLOOD UREA NITROGEN (test code = BUN) 27 mg/dL 7-18 H GLOMERULAR FILTRATION RATE (test code = GFR) 48 mL/min >=60 Estimated GFR by using Modified MDRD formula.Chronic kidney disease is defined as either kidney damageor GFR <60 mL/min/1.73 m2 for >3 months. CREATININE (test code = CREAT) 1.10 mg/dL 0.55-1.02 H Note change in reference range due to change in reagent. BUN/CREATININE RATIO (test code = BUN/CREA) 24.5 10-20 H CALCIUM (test code = CA) 8.5 mg/dL 8.5-10.1 N HEPATIC FUNCTION [id number] 01:52:00* Test Item Value Reference Range Interpretation Comments TOTAL PROTEIN (test code = PROT) 7.1 gram/dL 6.4-8.2 N ALBUMIN (test code = ALB) 3.4 g/dL 3.4-5.0 N GLOBULIN (test code = GLOB) 3.7 gram/dL 2.7-4.2 N ALBUMIN/GLOBULIN RATIO (test code = A/G) 0.9 0.75-1.50 N BILIRUBIN TOTAL (test code = BILT) 0.30 mg/dL 0.0-1.0 N BILIRUBIN DIRECT (test code = BILD) 0.11 mg/dL 0.0-0.20 N SGOT/AST (test code = AST) 16 IUnit/L 15-37 N SGPT/ALT (test code = ALT) 24 IUnit/L 12-78 N ALKALINE PHOSPHATASE TOTAL (test code = ALKP) 91 IUnit/L 45-117 N Note change in reference range due to change in reagent. [id number] 01:52:00* Test Item Value Reference Range Interpretation Comments LIPASE (test code = LIP) 81 U/L 73.0-393.0 N BASIC METABOLIC [id number] 01:38:00* Test Item Value Reference Range Interpretation Comments SODIUM (test code = NA) 137 mmol/L 136-145 N POTASSIUM (test code = K) 4.0 mmol/L 3.5-5.1 N CHLORIDE (test code = CL) 106.0 mmol/L 98-107 N CARBON DIOXIDE (test code = CO2) mmol/L 21-32 ANION GAP (test code = GAP) 10-20 GLUCOSE (test code = GLU) mg/dL 74-106 BLOOD UREA NITROGEN (test code = BUN) mg/dL 7-18 GLOMERULAR FILTRATION RATE (test code = GFR) mL/min >=60 CREATININE (test code = CREAT) mg/dL 0.55-1.02 BUN/CREATININE RATIO (test code = BUN/CREA) 10-20 CALCIUM (test code = CA) mg/dL 8.5-10.1 HEPATIC FUNCTION [id number] 01:38:00* Test Item Value Reference Range Interpretation Comments TOTAL PROTEIN (test code = PROT) gram/dL 6.4-8.2 ALBUMIN (test code = ALB) g/dL 3.4-5.0 GLOBULIN (test code = GLOB) gram/dL 2.7-4.2 ALBUMIN/GLOBULIN RATIO (test code = A/G) 0.75-1.50 BILIRUBIN TOTAL (test code = BILT) mg/dL 0.0-1.0 BILIRUBIN DIRECT (test code = BILD) mg/dL 0.0-0.20 SGOT/AST (test code = AST) IUnit/L 15-37 SGPT/ALT (test code = ALT) IUnit/L 12-78 ALKALINE PHOSPHATASE TOTAL (test code = ALKP) IUnit/L 45-117 [id number] 01:38:00* Test Item Value Reference Range Interpretation Comments LIPASE (test code = LIP) U/L 73.0-393.0 CBC W/O [id number] 01:36:00* Test Item Value Reference Range Interpretation Comments WHITE BLOOD CELL (test code = WBC) 12.2 K/mm3 4.5-12.5 N RED BLOOD CELL (test code = RBC) 3.48 mill/mm3 3.7-5.2 L HEMOGLOBIN (test code = HGB) 10.8 gram/dL 11.5-15.5 L HEMATOCRIT (test code = HCT) 32.1 % 36.0-46.0 L MEAN CELL VOLUME (test code = MCV) 92.2 fL 80-98 N MEAN CELL HGB (test code = MCH) 31.0 picogram 27.0-33.0 N MEAN CELL HGB CONCETRATION (test code = MCHC) 33.6 gram/dL 33.0-36. 0 N RED CELL DISTRIBUTION WIDTH (test code = RDW) 12.3 % 11.6-16. 2 N PLATELET COUNT (test code = PLT) 183 K/mm3 150-450 N MEAN PLATELET VOLUME (test code = MPV) 10.7 fL 6.7-11.0 N CHEST 2 VIEWS [facility] [address] [id number] Patient Name: PEREZ VELAZQUEZ MR #: [id number] : 1945 Age/Sex: 71/F Req #: [id number] Adm Physician: Ordered by: LORA RASMUSSEN MD Report #: [id number] Location: ER Room/Bed: Procedure: [id number] DX/CHEST 2 VIEWS Exam Date : 03/31/17 Exam Time: 1700 REPORT STATUS: Felecia d PROCEDURE: Frontal and lateral views of the chest. COMPARISON: Ches t radiograph of 03/19/2017 INDICATIONS: SWELLING BOTH LEGS FIN DINGS: Lines/tubes: None. Lungs: The lungs are well inflated and clear . There is no evidence of pneumonia or pulmonary edema. Pleura: There is no pleural effusion or pneumothorax. Heart and mediastinum: The heart and the mediastinum are normal. Bones: No acute bony abnormality. I MPRESSION: No acute cardiopulmonary disease. Dictated by: José Morales M.D. on 03/31/2017 at 17:38 Electronically approved by: Isrrael Morales M.D. on 03/31/2017 at 17:38 Dictated By: ZHANNA MARIO MD 37 Transcribed By: JUDAH on 03/31/171737 COPY TO: LORA RASMUSSEN MD CT BRAIN [place] [address] Patient Name: PEREZ VELAZQUEZ MR #: [id number] : 1945 Age/Sex: 71/F Req #: [id number] Adm Physician: Ordered by: ADRIÁN CHAMBERLAIN Report #: [id number] Location: ER Room/Bed: Procedure: [id number] CT/CT BRAIN WO Exam Cezar e: 03/19/17 Exam Time: 1130 REPORT STATUS: Sign ed History:Difficulty speaking Comparison studies:None Technique: Ax ial images were obtained from the skull base to the vertex. Coronal and sagitt al images reconstructed from the axial data. Intravenous contrast: None F indings: Scalp/skull: No abnormalities. Extra-axial spaces: No m asses. No fluid collections. Brain sulci: Mildly prominent. Ventricles: Mild compensatory dilatation. No hydrocephalus. Parenchyma: Few hypodens ities in the supratentorial white matter are small vessel ischemic changes. Ri ght orbitofrontal encephalomalacia. No masses, hemorrhage, acute or chronic c ortical vascular insults. Sellar/suprasellar region: No abnormalities. Cr aniocervical junction: Patent foramen magnum. No Chiari one malformation. Incidental findings: Atherosclerotic calcifications in the carotid siphons . Impression: No acute abnormalities. Chronic findings: 1. Mild g eneralized volume loss. 2. Mild supratentorial white matter small vessel isch emic changes. 3. Right orbitofrontal encephalomalacia. Signed by: DR Jose Arnold M.D. on 03/19/2017 12:28 PM Dictated By: MAGNO ARNOLD MD 1228 Tra nscribed By: ALONDRA on 03/19/17 1228 COPY TO: ADRIÁN CHAMBERLAIN CHEST SINGLE (PORTABLE) [place] [address] Patient Name: PEREZ VELAZQUEZ MR #: [id number] : 1945 Age/Sex: 71/F Req #: [id number] Adm Physician: Ordered by: ADRIÁN CHAMBERLAIN Report #: [id number] Location: ER Room/Bed: Procedure: [id number] DX/CHEST SINGLE (PORTABL E) Exam Date: 03/19/17 Exam Time: 1145 REPORT STATUS: Signed EXAMINATION: Chest, CHEST SINGLE (PORTABLE) INDICATI ON: Chest pain COMPARISON: Portable chest 01/01/2016 FINDINGS: LINES: None. Heart: Normal cardiac silhouette. Vascular: The p ulmonary vasculature is within normal limits. Atherosclerotic calcifications of the aortic arch. Mediastinum: No mediastinal, hilar, or axillary mass or lymphadenopathy. Lungs: No parenchymal mass. No focal consolidation. Pleura: No pleural effusion. No pneumothorax. Bones: No acute osseous ab normality. Degenerative changes of the thoracic spine. Soft tissues: No rmal. Impression: No acute radiographic abnormality. Signed by: Dr. Boo Stanton M.D. on 03/19/2017 12:13 PM Dictated By: BOO STANTON MD El ectronically Signed By: BOO STANTON MD on 03/19/17 1213 Transcribed By: ALONDRA on 03/19/17 1213 COPY TO: ADRIÁN CHAMBERLAIN [facility] W/CXR [place] [address] Patient Name: PEREZ VELAZQUEZ MR #: [id number] : 1945 Age/Sex: 71/F Req #: [id number] Adm Physician: Ordered by: MALIK GUTIERREZ CLINICAL RESEARCH DIRECTOR Report #: [id number] Location: ER Room/ Bed: Procedure: DX/RIBS UNILAT W/CXR Exam Date: 01/12/17 Exam Time: 1650 REPORT STATUS: S igned PROCEDURE: X-RAY UNILATERAL RIBS WITH CHEST X-RAY COMPARISON: None. INDICATIONS: LEFT SIDE RIB PAIN FINDINGS: One AP view of the chest and 3 additional views of the left-sided ribs (AP and bilateral obliques). No acute displaced left rib fracture. The lungs are clear. CONCLUSION: No acute displaced left rib fracture. Dictated by: Dino Gunderson M.D. on 01/12/2017 at 17:18 Electronically approved by: Dino Gunderson M.D. on 01/12/2017 at 17:18 Dictated By: DINO GUNDERSON MD 17 T ranscribed By: JUDAH on 01/12/171717 COPY TO: MALIK GUTIERREZ CLINICAL RESEARCH DIRECTOR CT BRAIN WO [place] [address] Patient Name: PEREZ VELAZQUEZ MR #: [id number] : 1945 Age/Sex: 71/F Req #: [id number] Adm Physician: Ordered by: HAMLET JANSEN MD Report #: [id number] Location: ER Room/Bed: Procedure: CT/CT BRAIN WO Exam Date: Exam Time: 1633 REPORT STATUS: Signed History: Fall with pain to left side of head and eyebrow Comparison studies: N one Technique: Axial images were obtained from the skull base to the peng amanda. Coronal and sagittal reconstructions obtained from the axial data. Findings: Scalp/skull: Tiny high left parietal subgaleal hematoma. No f ractures. Small low-attenuation calvarial lesions which are nonspecific but li amanda benign venous/vascular. Extra-axial spaces: No masses. No fluid co llections. Brain sulci: Appropriate for age. Ventricles: Normal in size a nd configuration. No hydrocephalus. Parenchyma: Right anterior temporal pole and right anterolateral orbitofrontal gyrus mild encephalomalacia possibl y remote sequelae of prior trauma. No masses, hemorrhage, or edema. Sell ar/suprasellar region: Partially empty sella Craniocervical junction: Patent f oramen magnum. No Chiari one malformation. Atherosclerotic calcifications of the carotid siphons and distal vertebral arteries. IMPRESSION: 1. Tiny high left parietal subgaleal hematoma. No acute intracranial abnormaliti es. Chronic findings: 1. Right anterior temporal pole and right anterola teral orbitofrontal gyrus mild encephalomalacia possibly remote sequelae of pr ior trauma. Signed by: DR Magno Arnold M.D. on 01/12/2017 7:47 PM Dictated By: MAGNO HINOJOSA MD 46 Transcribed By: ALONDRA on 01/12/171946 COPY TO: HAMLET JANSEN MD CT CERVICAL SPINE [place] [address] Patient Name: PEREZ VELAZQUEZ MR #: [id number] : 1945 Age/Sex: 71/F Req #: [id number] Adm Physician: Ordered by: HAMLET JANSEN MD Report #: [id number] Location: Room/Bed: Procedure: [id number] CT/CT CERVICAL SPINE WO Exam Date: 01/12/17 Exam Time: 1633 REPORT STATUS: S igned History: Fall with pain to left side of head and eyebrow Comparison s tudies: None Technique: Axial images were obtained through the cervical region.. Coronal and sagittal images reconstructed from the axial data.. Int ravenous contrast: None Findings: Airway: Patent. Fractures: None . Soft tissues: Calcified nodules in the left thyroid bed. Otherwise no gross abnormalities. Atlantoaxial articulation: Intact. Alignment: Normal leslie dosis. No scoliosis. Cervicomedullary junction: No abnormalities. The foramen magnum is patent. Vertebrae: No infection or neoplasm. Degenerative changes: Multilevel spondylosis and degenerative disc disease most significa nt at C5-C6 and C6-C7 where there is mild spinal canal stenosis. Moderate left neuroforaminal stenosis at C5-C6. IMPRESSION: 1. No acute abnormal ities. Signed by: DR Magno Arnold M.D. on 01/12/2017 7:48 PM Dictated By: MAGNO HINOJOSA MD 47 Transcribed By: ALONDRA on 01/12/171947 COPY TO: HAMLET JANSEN MD
--- NOTE | 2019-12-26 10:13 | Emergency Department Note ---
History of Present Illnes History of Present Illness Chief Complaint: Diabetic Crisis History of Present Illness This is a 74 year old female arrived to the ED due to the ED for low blood sugar, patient's blood sugar on arrival by EMS was 29. Patient of generalized weakness and malaise for several weeks now worsening.. Chief Complaint Comment pt states this am her blood sugar was 289 so she took Humalog 5 units, and Lantis 12 units 1.5 hours later she started feeling bad and weakness, EMS was called and on arrival BS was 209 pt given D50, pt is alert and oriented at this time. NAD noted. 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 Any updates have been documented here. Past Medical History Recent Fever: No Clinical Suspicion of Infectio: No New/Unexplained Change in Ment: No Past Medical History: Diabetes Other Medical History: HYPOTENSION HIGH CHOLESTROL CHRONIC ANEMIA Other Surgery: HEART CATH RIGHT KNEE Social History Smoking Cessation: Never Smoker Counseling Performed: No Alcohol Use: None Any Illegal Drug Use: No Physically hurt or threatened: No Other Last Tetanus: UTD Any Pre-Existing Lines (PICC,: No Review of Systems Review of Systems Constitutional: Reports as per HPI, Reports malaise, Reports weakness EENTM: Reports no symptoms Cardiovascular: Reports no symptoms Respiratory: Reports no symptoms Gastrointestinal: Reports no symptoms Genitourinary: Reports no symptoms Musculoskeletal: Reports no symptoms Integumentary: Reports no symptoms Neurological: Reports no symptoms Psychological: Reports no symptoms Endocrine: Reports no symptoms Hematological/Lymphatic: Reports no symptoms Physical Exam Related Data Allergies: Coded Allergies: No Known Allergies (Unverified , 01/12/17) Triage Vital Signs Vital Signs Date Time Temp Pulse Resp B/P (MAP) Pulse Ox O2 Delivery O2 Flow Rate FiO2 12/26/19 09:12 98.2 60 18 154/72 100 Room Air Vital signs reviewed: Yes Physical Exam CONSTITUTIONAL Constitutional: Present well-developed, Present well-nourished, Present cachectic HENT HENT: Present normocephalic, Present atraumatic, Present oropharynx clear/moist, Present nose normal HENT L/R: Present left ext ear normal, Present right ext ear normal EYES Eyes: Reports PERRL, Reports conjunctivae normal NECK Neck: Present ROM normal PULMONARY Pulmonary: Present effort normal, Present breath sounds normal CARDIOVASCULAR Cardiovascular: Present regular rhythm, Present heart sounds normal, Present capillary refill normal, Present normal rate GASTROINTESTINAL Abdominal: Present soft, Present nontender, Present bowel sounds normal GENITOURINARY Genitourinary: Present exam deferred SKIN Skin: Present warm, Present dry MUSCULOSKELETAL Musculoskeletal: Present ROM normal NEUROLOGICAL Neurological: Present alert, Present oriented x 3, Present no gross motor or sensory deficits PSYCHOLOGICAL Psychological: Present mood/affect normal, Present judgement normal Results Laboratory Laboratory Laboratory Tests Test 12/26/19 09:40 Lab results reviewed: Yes Laboratory comments Laboratory Tests Test 12/26/19 11:23 12/26/19 09:40 Urine Color Yellow (YELLOW) Urine Clarity Clear (CLEAR) Urine pH 7 (5 - 7) Urine Specific [place] 1.020 (1.010-1.025) Urine Protein 2+ (NEGATIVE) Urine Glucose (UA) 2+ (NEGATIVE) Urine Ketones Negative (NEGATIVE) Urine Blood Trace (NEGATIVE) Urine Nitrite Negative (NEGATIVE) Urine Bilirubin Negative (NEGATIVE) Urine Urobilinogen 0.2 mg/dL (0.2 - 1) Urine Leukocyte Esterase Negative (NEGATIVE) Urine RBC 0-5 /HPF (0-5) Urine WBC 0-5 /HPF (0-5) Urine Epithelial Cells Rare /LPF (NONE) Urine Bacteria None /HPF (NONE) Urine Mucus Few (RARE) White Blood Count 5.10 x10e3/uL (4.8-10.8) Red Blood Count 3.06 x10e6/uL (3.6-5.1) Hemoglobin 9.2 g/dL (12.0-16.0) Hematocrit 28.1 % (34.2-44.1) Mean Corpuscular Volume 91.8 fL (81-99) Mean Corpuscular Hemoglobin 30.1 pg (28-32) Mean Corpuscular Hemoglobin Concent 32.7 g/dL (31-35) Red Cell Distribution Width 12.4 % (11.7-14.4) Platelet Count 211 x10e3/uL (140-360) Neutrophils (%) (Auto) 62.6 % (38.7-80.0) Lymphocytes (%) (Auto) 25.3 % (18.0-39.1) Monocytes (%) (Auto) 8.6 % (4.4-11.3) Eosinophils (%) (Auto) 2.9 % (0.0-6.0) Basophils (%) (Auto) 0.4 % (0.0-1.0) Neutrophils # (Auto) 3.2 (2.1-6.9) Lymphocytes # (Auto) 1.3 (1.0-3.2) Monocytes # (Auto) 0.4 (0.2-0.8) Eosinophils # (Auto) 0.2 (0.0-0.4) Basophils # (Auto) 0.0 (0.0-0.1) Absolute Immature Granulocyte (auto 0.01 x10e3/uL (0-0.1) Sodium Level 137 mmol/L (136-145) Potassium Level 3.6 mmol/L (3.5-5.1) Chloride Level 101 mmol/L (98-107) Carbon Dioxide Level 25 mmol/L (22-29) Anion Gap 14.6 mmol/L (8-16) Blood Urea Nitrogen 18 mg/dL (7-26) Creatinine 0.93 mg/dL (0.57-1.11) Estimat Glomerular Filtration Rate 59 ML/MIN (60-) BUN/Creatinine Ratio 19 (6-25) Glucose Level 76 mg/dL (74-118) Calcium Level 9.0 mg/dL (8.4-10.2) Total Bilirubin 0.4 mg/dL (0.2-1.2) Aspartate Amino Transf (AST/SGOT) 15 IU/L (5-34) Alanine Aminotransferase (ALT/SGPT) 11 IU/L (0-55) Alkaline Phosphatase 70 IU/L (40-150) Creatine Kinase 63 IU/L (29-168) Creatine Kinase MB 1.00 ng/mL (0-5.0) Troponin I 0.006 ng/mL (0-0.300) Total Protein 6.7 g/dL (6.5-8.1) Albumin 3.5 g/dL (3.5-5.0) Globulin 3.2 g/dL (2.3-3.5) Albumin/Globulin Ratio 1.1 (0.8-2.0) Thyroid Stimulating Hormone (TSH) 1.306 uIU/mL (0.350-4.940) Imaging Imaging results reviewed: Yes Impressions IMPRESSION: No focal pneumonia or pulmonary edema. Procedures 12 Lead ECG Interpretation ECG Interpretation : ECG: ECG 1 Prior ECG tracings: reviewed Rhythm: sinus rhythm ST segments normal: Yes T waves normal: Yes Clinical Impression: non-specific ECG Assessment & Plan Medical Decision Making MDM 74-year-old female arrived to the ED with complaint of generalized malaise and weakness. Patient noted markedly hypoglycemic upon arrival, by mouth and D50 replacement given. Patient admitted for observation. No source of infection present at time of admission Assessment & Plan Final Impression: (1) Dehydration (2) Hypoglycemia Depart Disposition: ADMITTED Last Vital Signs Date Time Temp Pulse Resp B/P (MAP) Pulse Ox O2 Delivery O2 Flow Rate FiO2 12/26/19 09:12 98.2 60 18 154/72 100 Room Air Home Meds Active Scripts [Calcium Carbonate] 500 MG TAB No Conflict Check, 500 MG PO BIDWM for 30 Days Prov:BASSAM MURILLO NP 04/02/17 [Multivitamins/Minerals] TAB No Conflict Check, 1 PO BIDWM for 30 Days Prov:BASSAM MURILLO NP 04/02/17 Ferrous Sulfate (FEOSOL) 325 Mg Tablet, 325 MG PO BIDWM for 30 Days Prov:BASSAM MURILLO NP 04/02/17 Ascorbic Acid (ASCORBIC ACID) 500 Mg Tablet, 500 MG PO BIDWM for 30 Days Prov:BASSAM MURILLO NP 04/02/17 Metoclopramide Hcl (METOCLOPRAMIDE HCL) 10 Mg Tablet, 10 MG PO BIDAC for 14 Days Prov:YAQUELIN DOUGLAS NP 11/28/16 Famotidine (FAMOTIDINE) 20 Mg Tab, 20 MG PO BIDAC for 14 Days, TAB Prov:YAQUELIN DOUGLAS NP 11/28/16 Sitagliptin Phosphate (JANUVIA) 100 Mg Tablet, 100 MG PO DAILY for 14 Days Prov:YAQUELIN DOUGLAS NP 11/28/16 Reported Medications Pantoprazole Sodium* (PROTONIX) 40 Mg Tablet.dr, 40 MG PO DAILY, TAB 03/19/17 Lisinopril (LISINOPRIL) 2.5 Mg Tablet, 2.5 MG PO DAILY, #30 TAB 03/19/17 Gabapentin (GABAPENTIN) 100 Mg Capsule, 200 MG PO HS 03/19/17 Insulin Glargine (LANTUS 3ML PEN) 100 Units/1 Ml Inj, 10 UNIT SC QAM 01/01/16 Metoprolol Tartrate (METOPROLOL TARTRATE) 25 Mg Tablet, 25 MG PO BID, TAB 01/01/16 Aspirin (ASPIRIN) 81 Mg Tab.chew, 81 MG PO DAILY 01/01/16 Atorvastatin Calcium (ATORVASTATIN CALCIUM) 10 Mg Tablet, 10 MG PO 2100, #30 TAB 08/24/15 Levothyroxine Sodium (LEVOTHYROXINE SODIUM) 75 Mcg Tablet, 100 MCG PO DAILY, #30 TAB 08/24/15 VIVIAN NEWMAN, Dec 26, 2019 10:13
[2019-12-26 10:20] LABS: BASOPHILS % 0.4 % (0.0-1.0); EOSINOPHILS # (AUTO) 0.2 (0.0-0.4); EOSINOPHILS % 2.9 % (0.0-6.0); HEMATOCRIT 28.1 % (34.2-44.1); HEMOGLOBIN 9.2 g/dL (12.0-16.0); LYMPHOCYTES # (AUTO) 1.3 (1.0-3.2); LYMPHOCYTES % 25.3 % (18.0-39.1); MEAN CORPUSCULAR HEMOGLOBIN 30.1 pg (28-32); MEAN CORPUSCULAR HGB CONC 32.7 g/dL (31-35); MEAN CORPUSCULAR VOLUME 91.8 fL (81-99); MONOCYTES # (AUTO) 0.4 (0.2-0.8); MONOCYTES % 8.6 % (4.4-11.3); NEUTROPHILS # (AUTO) 3.2 (2.1-6.9); NEUTROPHILS % 62.6 % (38.7-80.0); PLATELET COUNT 211 x10e3/uL (140-360); RED BLOOD COUNT 3.06 x10e6/uL (3.6-5.1); RED CELL DISTRIBUTION WIDTH 12.4 % (11.7-14.4)
--- NOTE | 2019-12-26 10:31 | Diagnostic Imaging Report ---
EXAMINATION: CHEST SINGLE (PORTABLE) INDICATION: Hypoglycemia, fever COMPARISON: Chest radiograph of 03/19/2017 FINDINGS: LINES/TUBES:EKG leads overlie the chest. LUNGS:The lungs are well-inflated. No focal consolidation or pulmonary edema. Unchanged surgical sutures overlie the lateral left thorax. PLEURA:No pleural effusion or pneumothorax. MEDIASTINUM:The cardiomediastinal silhouette appears normal in size and shape. Atherosclerotic calcifications of the thoracic aorta. BONES/SOFT TISSUES:No acute osseous injury. Old lateral right rib fracture deformities. ABDOMEN:No free air under the diaphragm. IMPRESSION: No focal pneumonia or pulmonary edema. Signed by: Sandra Powell MD on 12/26/2019 10:28 AM
[2019-12-26 10:40] LABS: ALBUMIN 3.5 g/dL (3.5-5.0); ALBUMIN/GLOBULIN RATIO 1.1 (0.8-2.0); ANION GAP 14.6 mmol/L (8-16); CREATININE, SERUM 0.93 mg/dL (0.57-1.11); POTASSIUM 3.6 mmol/L (3.5-5.1)
[2019-12-26 11:31] LABS: CLARITY,URINE CLEAR (CLEAR); COLOR,URINE YELLOW (YELLOW); KETONES,URINE NEGATIVE (NEGATIVE); LEUKOCYTE ESTERASE ,URINE NEGATIVE (NEGATIVE); NITRITE,URINE NEGATIVE (NEGATIVE); PROTEIN,URINE DIPSTICK 2+ (NEGATIVE); URINE UROBILINOGEN 0.2 mg/dL (0.2 - 1)
[2019-12-26 11:32] LABS: BILIRUBIN,URINE NEGATIVE (NEGATIVE)
[2019-12-26 11:43] LABS: RBC,URINE 0-5 /HPF (0-5); WBC,URINE (MAN) 0-5 /HPF (0-5)
[2019-12-26 11:44] LABS: EPITHELIAL CELLS,URINE RARE /LPF; MUCUS,URINE FEW (RARE)
--- OUTSIDE RECORDS SUMMARY | 2019-12-26 12:08 | XMS REPORT | Continuity of Care Document ---
Author Author [email or web address], PEREZ Suárez [employer] Address Unknown Phone Unavailable Care Team Providers Care Assistant Office Manager Name Role Phone [employer] Unavailable Un available Problems Problem Status Onset Date Classification Date Reported Comments Source R07.89 - OTHER CHEST PAIN Acti ve 08/18/2016 [facility] [place] R92.8 - OTH ABN AND INCONCLUSIVE FINDI Active 05/27/2015 [facility] [place] Diabetic retinopathy of both eyes associ ated with diabetes mellitus of other type, macular edema presence unspecified, unspecified retinopathy severity Active Diagnosis 01/17/2017 2.840.1.751962.4.391.11.76474 Gastroesophageal reflux disease, esophag itis presence not specified Active Prob nory 01/17/2017 2.840.1.265602.4.391.11.15182 Severe protein-calorie malnutrition Active Problem 2.840.1.933989.4.391.11.2 2568 intermediate frame tender current use of insulin Active Problem 2.840.1.101464.4.391.11.2 2568 Type 2 diabetes mellitus with hyperglycemia Active Problem 01/17/2017 2.840.1.516374.4.391.11.37594 Hypothyroidism, unspecified type Active Problem 2.840.1.771995.4.391.11.2 2568 Osteoporosis without current pathologica l fracture, unspecified osteoporosis type Active Problem 01/17/2017 2.840.1.004221.4.391.11.68426 Other and unspecified hyperlipidemia Active Problem 2.16840.1.461326.4.391.11.2 2568 Hypotension, unspecified hypotension type Active Problem 01/17/2017 2.840.1.894234.4.391.11.81637 Encounter for immunization Act jennie Diagnosis 0 01/17/2017 2.16.840.1.808877.4.391.11.2 2568 Type 2 diabetes mellitus with hyperglyce mel[place], without long-term current use of insulin Active Diagnosis 12/23/2016 2.840.1.559404.4.391.11.04527 Encounter for general adult medical exam ination with abnormal findings Active Diag nosis 12/23/2016 2.840.1.103536.4.391.11.91200 BMI less than 19,adult Active Diagnosis 12/23/2016 2.0.1.155558.4.391.11.2 2568 Medications Medication Details Route Status Patient Instructions Ordering Provider Order Date Source Zantac 1 tablet at bedtime Orally Active 150 MG Orally Once a day Montez 12/19/2016 2.0.1.564383.4.391.11.69848 Naprosyn 1 tablet Orally Active 250 MG Orally Twice a d ay Montez 12/19/2016.0.1.133237.4.391.11.32297 NovoLog Flexpen Inject Subcutaneous Active 100 UNIT/ML Subcutaneous 8 units tid Montez 06.16.830.1.687455.4.391 Metoclopramide HCl 1 tablet by mouth Active 10 MG by mouth daily Montez 06.16.830.1.873873.4.391 Midodrine HCl 1 tablet Orally Active 2.5 MG Orally Three josé miguel es a day Montez 06.16.830.1.318449.4.391.11 Lantus SoloStar Inject Subcutaneous Active 100 UNIT/ML Subcutaneous 20 units in the am and 10 units in pm Montez 06.16.830.1.145318.4.391.11 Pravastatin Sodium 1 tablet Orally Active 10 MG Orally Once a day [place] 06.16.830.1.158147.4.391.11 Levothyroxine Sodium 1 tablet on an empty stomach in the morning Orally Active 88 MCG Orally Once a day [place] 06.16.830.1.841396.4.391.11.2 2568 Pantoprazole Sodium 1 tablet Orally Active 40 MG Orally Once a day Montez 2.16.840.1.800185.4.391.11.32956 Allergies, Adverse Reactions, Alerts Substance Category Reaction Severity Reaction type Status Date Reported Comments Source N.K.D.A. Adverse Reaction Info Not Available Adverse Reaction Active 01/11/2017 2..840.1.676415.4.391.11.2 2568 Immunizations Immunization Date Given Site Status Last Updated Comments Source FLU VACCINE NO PRESERV 3 & > 0 01/11/2017 completed 2..840.1.730507.4.391.11.2 2568 Results No Data Provided for This [...] left lateral 5th rib deformity. 11/13/2019 [facility] Spine thoracic 3 views DX EXAM : Spine thoracic 3 views DX HISTORY: - M54.6 Pain in thoracic spine COMPARISON: 03/17/2017 AP, lateral and swimmer's views of the thoracic spine. FINDINGS: There is mild to moderate diffuse disc space narrowing. Advanced C4-C7 disc space narrowing. Osteopenia. No fracture or focal osseous lesion is seen. IMPRESSION: Discogenic degenerative change. 11/13/2019 [facility] Breast Mammo Scrn JOHNSON w hattie incl CAD MA BILATERAL DIGITAL SCREENING MAMMOGRAM 3D/2D WITH CAD: 10/08/2019 CLINICAL: Z12.31 Encounter For Screening Mammogram For Malignant Neoplasm Of Breast/Z12.31 Encounter For Screening Mammogram For Malignant Neoplasm Of Breast. Current study was evaluated with a Computer Aided Detection (CAD) system. COMPARISON:Comparison is made to exams dated: 10/06/2017 mammogram, 07/15/2016 mammogram, and 06/18/2015 mammogram - [facility]. TECHNIQUE: Digital Breast Tomosynthesis was performed and [...] is recommended.(10/08/2020) This exam was interpreted at [id number] for GENEVIEVE Ware. Professional services are provided by the [facility] Diagnostic Imaging. Jeri Brand M.D. ms/penrad:10/08/2019 14:11:12 Rn Licensed Practical(s): RT Marla(R)(M), [facility] letter sent: BI-RADS 1/2 Mammogram BI-RADS: 2 [...] Left hip using a Hologic unit from [facility] with reported high fracture risk, BMD of 0.638g/cm2, T-score of -2.50, and Z-score of -0.70. 10/06/2017 Right hip using a Hologic uni t from [facility] with reported high fracture risk, BMD of 0.562g/cm2, T-score of -3.10, and Z-score of -1.30. 10/06/2017 AP L1-L4 region of spine chidi aguirre a Hologic unit from [facility] with reported high fracture risk, BMD of [...] is recommended. This exam was interpreted at [id number] for GENEVIEVE Ware. Jeri Brand M.D. ms/penrad:10/08/2019 14:09:48 Rn Licensed Practical(s): Kat Worrell RT(R)(M), [facility] 10/08/2019 RISHABH Gonzales Bone Density [employer] MA BONE DENSITY ASSESSMENT: 10/06/2017 CLINICAL DATA: Post menopausal and clinical risk for osteoporosis. M81.0 Age- related osteoporosis without current pathological fracture. Age-Related Osteoporosis Without Current Pathological Fracture/M81.0 COMPARISON: 03/18/2016 Right hip using a Hologic uni t from [facility] with reported high fracture risk, BMD of 0.549g/cm2, T-score of -3.20, and Z-score of -1.50. 03/18/2016 Left hip using a Hologic unit from [facility] with reported high fracture risk, BMD of 0.618g/cm2, T-score of -2.70, and Z-score of -1.00. 03/18/2016 AP L1-L4 region of spine usin g a Hologic unit from [facility] with reported high fracture risk, BMD of [...] is recommended. This exam was interpreted at [id number] at [facility]. Jeri Brand M.D., ms/alireza:10/06/2017 11:56:01 Rn Licensed Practical(s): Kat Worrell RT(R)(M), [facility] 10/06/2017 RISHABH Gonzales Breast Mammo Scrn JOHNSON incl CAD MA BILATERAL DIGITAL SCREENING MAMMOGRAM WITH CAD: 10/06/2017 CLINICAL: Encounter For Screening Mammogram For Malignant Neoplasm Of Breast/Z12.31. Current study was evaluated with a Computer Aided Detection (CAD) system. COMPARISON:Comparison is made to exams dated: 07/15/2016 mammogram, 06/18/2015 mammogram, and 03/13/2014 mammogram - [facility]. TECHNIQUE: Mammographic views were obtained using digital [...] is recommended.(10/07/2018) This exam was interpreted at [id number] at [facility]. Professional services are provided by the [facility] Diagnostic [facility]. Mariah Knox M.D. /penrad:10/06/2017 10:17:45 Rn Licensed Practical(s): Daya Will, RT(R)(M), 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 Lumbosacral degenerative change. 03/17/2017 [facility] [place] Spine thoracic 3 views DX EXAM : [...] changes throughout the thoracic spine. 03/17/2017 [facility] [place] Hip 2/3 views uni DX Exam: Ri [...] mammogram, 01/11/2013 mammogram and 11/25/2011 mammogram - [facility]. There are scattered fibroglandular densities in both [...] Division of Diagnostic Imaging. Marc archibald/penrad:07/15/2016 14:01:12 Rn Licensed Practical: Kat BOBO(R)(M), [facility] This exam was dictated and interpreted by [id number] for GENEVIEVE Everett. letter sent: Normal exam [...] This exam was dictated and interpreted by [id number] for BRENDA Ware 15. Mariano Gambino M.D. cm/penrad:03/21/2016 09:26:50 Rn Licensed Practical: Daya BOBO (R)(Beverley), [facility] 03/18/2016 RISHABH Gonzales Digital Mammo DX Johnson MA - DIGI RONAK MAMMO DX JOHNSON MA BILATERAL DIGITAL DIAGNOSTIC MAMMOGRAM WITH CAD: 06/18/2015 CLINICAL: Abnormal Mammogram. Current study was evaluated with a Computer Aided Detection (CAD) system. Comparison is made to exams dated: 03/13/2014 mammogram, 08/12/2013 mammogram, 02/06/2013 mammogram, 11/25/2011 mammogram, 01/11/2013 mammogram and 11/04/2010 mammogram - [facility]. There are scattered fibroglandular densities in both [...] is recommended. Mariano Gambino M.D., cm/penrad:06/18/2015 11:19:32 Rn Licensed Practical: Daya BOBO (R)(Beverley), [facility] This exam was dictated and interpreted by [id number] for Janet. letter sent: Normal exam Mammogram BI-RADS: 2 Benign 06/18/2015 RISHABH Gonzales Bone Density DXA [employer] MA - Bone Density DXA [employer] MA BONE DENSITY EVALUATION: 11/13/2014 CLINICAL DATA: Post menopausal. COMPARISON: 11/25/2011 Right hip using [employer] ergy X-Ray Absorptiometry from [facility] with reported high fracture risk, BMD of 0.634g/cm2, T-score of -3.00, Z-score of -1.20 and 81.0% age-match bone mineralization. 11/25/2011 Left hip using [employer] Dual Purnima rgy X-Ray Absorptiometry from [facility] with reported medium fracture risk, BMD of 0.700g/cm2, T-score of -2.40, Z-score of -0.60 and 90.0% age-match bone mineralization. 11/25/2011 AP L1-L4 region of spine usin g [employer] X-Ray Absorptiometry from [facility] with reported high fracture risk, BMD of [...] This exam was dictated and interpreted by [id number] for GENEVIEVE Everett. Dr. Christos stock/penrad:11/13/2014 16:46:25 Rn Licensed Practical: Kat Worrell [facility] 11/13/2014 RISHABH Gonzales Foot series DX EXAM: [...] ultrasound, 08/12/2013 mammogram and 08/12/[address] ultrasound - [facility]. There are scattered fibroglandular densities in both [...] examination. Dr. Linsey Fraga D.O. ht/:03/13/2014 10:50:32 Rn Licensed Practical: Monique Hopson RT(R)(M), [facility] This exam was dictated and interpreted by [id number] for Janet. letter sent: Followup Mammogram BI-RADS: [...] ultrasound, 08/12/2013 mammogram and 08/12/[address] - [facility]. There are scattered fibroglandular densities in both [...] examination. Dr. Linsey Fraga D.O. ht/:03/13/2014 10:50:32 Rn Licensed Practical: Monique Hopson RT(R)(M), [facility] This exam was dictated and interpreted by [id number] for GENEVIEVE Gonzales. letter sent: Followup Mammogram BI-RADS: 3 Probably benign Ultrasound BI-RADS: 3 Probably benign 03/13/2014 RISHABH Gonzales Bowel small bowel series SMALL BOWEL FOLLOW-THROUGH CLINICAL HISTORY: Diarrhea, weight loss TECHNIQUE: Antegrade single contrast exam with barium oral contrast. FLUOROSCOPY TIME: 10 seconds. 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 [...] Value Date Comments Source Weight 83.4 01/11/2017 2.16.840.1.821114.4.391.11.2 2568 Height 56.3 01/11/2017 2.16.840.1.952696.4.391.11.2 2568 Temperature Oral (F) 98.2 F 01/11/2017 2.16.840.1.610156.4.391.11.42501 Heart Rate 78 01/11/2017 2.16.840.1.785034.4.391.11.2 2568 Diastolic (mm Hg) 48 01/11/2017 2.16.840.1.225192.4.391.11.09206 Systolic (mm Hg) 112 01/11/2017 2.16.840.1.114265.4.391.11.07920 Weight 85.3 12/19/2016 2.16.840.1.357935.4.391.11.2 2568 Height 56.3 12/19/2016 2.16.840.1.454248.4.391.11.2 2568 Temperature Oral (F) 97.9 F 12/19/2016 2.16.840.1.391976.4.391.11.05621 Heart Rate 76 12/19/2016 2.16.840.1.329660.4.391.11.2 2568 Diastolic (mm Hg) 59 12/19/2016 2.16.840.1.320515.4.391.11.58869 Systolic (mm Hg) 143 12/19/2016 2.16.840.1.068514.4.391.11.88148 Encounters Location Location Details Encounter Type Encounter Number Reason For Visit Attending Provider ADM Date DC Date Status Source [facility] [place] [facility] [id number] 10 Nicolas Neri 10/07/2013 10/08/2013 [facility] [place] [facility] [place] [facility] [id number] 11 Deyvi Flanagan 03/13/2014 03/14/2014 [facility] [place] [facility] [place] [facility] [id number] 12 Deyvi Flanagan 11/10/2014 11/11/2014 [facility] [place] [facility] [place] [facility] [id number] 13 Deyvi Flanagan 11/13/2014 11/14/2014 [facility] [place] [facility] [place] [facility] [id number] 14 Deyvi Flanagan 06/18/2015 06/19/2015 [facility] [place] [facility] [place] [facility] [id number] 15 Deyvi Flanagan 03/18/2016 03/19/2016 MH [facility] [place] [facility] [place] [facility] [id number] 16 Deyvi Flanagan 04/01/2016 04/02/2016 MH [facility] [place] [facility] [place] [facility] [id number] 17 Deyvi Flanagan 07/15/2016 07/16/2016 [facility] [place] [facility] [place] [facility] [id number] 18 Deyvi Robledolar 08/18/2016 08/19/2016 [facility] [place] [facility] [place] [facility] [id number] 19 Deyvi Flanagan 12/13/2016 12/14/2016 [facility] [place] [facility] [place] [facility] [id number] 20 Deyvi Flanagan 03/17/2017 03/18/2017 [facility] [place] [facility] [place] [facility] [id number] 21 Deyvi Flanagan 03/28/2017 03/29/2017 [facility] [place] [facility] [place] [facility] [id number] 22 Deyvi Flanagan 10/06/2017 10/07/2017 [facility] [place] [facility] [place] [facility] [id number] 23 Deyvi Flanagan 10/08/2019 10/09/2019 [facility] [place] [facility] [place] [facility] [id number] 24 Deyvi Flanagan 11/13/2019 11/14/2019 [facility] [place] [facility] [place] [facility] [id number] 25 Deyvi Robledolar 12/06/2019 12/07/2019 [facility] [place] Procedures No Data Provided for This Section Assessment and Plan No Data Provided for This Section Plan of Care No Data Provided for This Section Social History Social History Date Source Social History TypeResponse 12/07/2019 MH [facility] [place] Family History No Data Provided for This Section Advance Directives No Data Provided for This Section Functional Status No Data Provided for This Section
--- OUTSIDE RECORDS SUMMARY | 2019-12-26 12:09 | XMS REPORT | Continuity of Care Document ---
Author Author [facility] t Organization [facility] Address 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 89 - OTHER CHEST PAIN Active 08/18/2016 [facility] Diagnosis Active 2016-08-18 00:01:00 2016-08-25 14:01:00 Renay Rapp R92.8 - OTH ABN AND INCONCLUSIVE FINDI R92.8 - OTH ABN AND INCONCLUSIVE FINDI Active 05/27/2015 [facility] [place] Diagnosis Active 2015-05-27 00:01:00 2015-06-18 10:44:00 M gayla Rapp Diabetic retinopathy of both eyes associ ated with diabetes mellitus of other type, macular edema presence unspecified, unspecified retinopathy severity Diabetic retinopathy of both eyes associated with diabetes mellitus of other type, macular edema presence unspecified, unspecified retinopathy severity Active Diagnosis 01/17/2017 [id number] Diagnosis Active 2017-01-17 02:47:03 Renay Rapp Gastroesophageal reflux disease, esophagitis presence not specified Gastroesophageal reflux disease, esophagitis presence not specified Active Problem 01/17/2017 [id number] Problem Active 2017-01-17 02:47:03 Renay Rapp Severe protein-calorie malnutrition Severe protein- calorie malnutrition Active Problem 01/17/2017 [id number]..23714 Problem Active 2017-01-17 02:47:03 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 Active Problem 01/17/2017 2.16.840.1.952229.4.391..38013 Problem Active 2017-01-17 02:47:03 Marcelino karyyeni Rapp Type 2 diabetes mellitus with hyperglycemia Type 2 diabetes mellitus with hyperglycemia Active Problem 01/17/2017 2..840.1.482721.4.391..00777 Problem Active 2017-01-17 02:47:03 Renay Rapp Hypothyroidism, unspecified type Hypothyroidism, unspecified type Active Problem 01/17/2017 2..840.1.927179.4.391..98047 Problem Active 2017-01-17 02:47:03 Renay Rapp Osteoporosis without current pathologica l fracture, unspecified osteoporosis type Osteoporosis wit hout current pathological fracture, unspecified osteoporosis type Active Problem 01/17/2017 2.16.840.1.471073.4.391.11.55158 Problem Active 2017-01-17 02:47:03 Farrukh Rapp Other and unspecified hyperlipidemia Other and unspecified hyperlipidemia Active Problem 01/17/2017 2.16.840.1.362740.4.391.11.33102 Problem Active 2017-01-17 02:47:03 Farrukh Rapp Hypotension, unspecified hypotension type Hypotension, unspecified hypotension type Active Problem 01/17/2017 2.16.840.1.511761.4.391.11.16612 Problem Active 2017-01-17 02:47:03 Farrukh Rapp Encounter for immunization Enc ounter for immunization Active Diagnosis 01/17/2017 [id number] Diagnosis Active 2017-01-17 02:47:03 [facility] Encounter for general adult medical examination with a bnormal findings Encounter for general adult medical examination with abnormal findings Active Diagnosis 12/23/2016 [id number] Diagnosis Active 2016-12-23 02:47:16 [facility] [place] BMI less than 19,adult BMI less than 19,adult Active Diagnosis 12/23/2016 2.16.840.1.684833.4.391.11.95062 Diagnosis Active 2016-12-23 02:47:16 [facility] Allergies, Adverse Reactions, Alerts Allergy Name Allergy Type Status Severity Reaction(s) Onset Date Inacti ve Date Treating Clinician Comments Source Ryan Redmond. Active Info Not Available 2017-01-11 00:00:00 [facility] No Known Allergies DA Active U 2015-10-07 00:00:00 [facility] Medications Ordered Medication Name Filled Medication Name Start Date Stop Da te Current Medication? Ordering Clinician Indication Dosage Frequency Signature (SIG) Comments Components Source NovoLog Flexpen 2017-01-17 02:47:03 Yes Stephen Montez Inject [facility] Metoclopramide HCl 2017-01-17 02:47:03 Yes Stephen Montez 1 tablet [facility] Midodrine HCl 2017-01-17 02:47:03 Yes Stephen Montez 1 tablet [facility] Lantus SoloStar 2017-01-17 02:47:03 Yes Stephen Montez Inject [facility] Pravastatin Sodium 2017-01-17 02:47:03 Yes Stephen Montez 1 tablet [facility] Levothyroxine Sodium 2017-01-17 02:47:03 Yes Stephen Epi ed 1 tablet on an empty stomach in the morning [facility] Pantoprazole Sodium 2017-01-17 02:47:03 Yes Stephen Montez 1 tablet [facility] Zantac 2016-12-19 00:00:00 Yes Stephen Montez 1 ta blet at bedtime [facility] Naprosyn 2016-12-19 00:00:00 Yes Stephen Montez 1 tablet [facility] Vital Signs Vital Name Observation Time Observation Value Comments Source Weight 2017-01-11 15:45:00 [facility] Height 2017-01-11 15:45:00 [facility] Temperature Oral (F) 2017-01-11 15:45:00 98.2 F [facility] Heart Rate 2017-01-11 15:45:00 [facility] [place] Diastolic (mm Hg) 2017-01-11 15:45:00 [facility] Systolic (mm Hg) 2017-01-11 15:45:00 [facility] Weight 2016-12-19 15:30:00 [facility] Height 2016-12-19 15:30:00 [facility] Temperature Oral (F) 2016-12-19 15:30:00 97.9 F [facility] [place] Heart Rate 2016-12-19 15:30:00 [facility] [place] Diastolic (mm Hg) 2016-12-19 15:30:00 [facility] Systolic (mm Hg) 2016-12-19 15:30:00 Farrukh [facility] [place] Procedures This patient has no known procedures. Encounters Start Date/Time End Date/Time [facility] ID Source 2019-12-06 10:36:00 2019-12-06 23:59:00 Outpatient Deyvi Flanagan [facility] [id number] 2019-11-13 10:59:00 2019-11-13 23:59:00 Outpatient Deyvi Flanagan [facility] [id number] 2019-10-08 10:11:00 2019-10-08 23:59:00 Outpatient Deyvi Flanagan [facility] [id number] 2017-10-06 07:46:00 2017-10-06 23:59:00 Outpatient Deyvi Flanagan [facility] M[facility] [id number] 2017-03-28 08:48:00 2017-03-28 23:59:00 Outpatient Deyvi Flanagan [facility] M[facility] [id number] 2017-03-17 16:00:00 2017-03-17 23:59:00 Outpatient Deyvi Flanagan [facility] [id number] 2017-01-11 10:45:00 2017-01-11 10:45:00 Outpatient [facility] [place] [id number] eClinicalWork s 2016-12-19 10:30:00 2016-12-19 10:30:00 Outpatient [facility] [place] [id number] eClinicalWork s 2016-12-13 12:25:00 2016-12-13 23:59:00 Outpatient Flanagan Durga [facility] M[facility] [id number] 2016-08-18 11:18:00 2016-08-18 23:59:00 Outpatient Flanagan, Durga [facility] M[facility] [id number] 2016-07-15 09:32:00 2016-07-15 23:59:00 Outpatient Flanagan Durga [facility] M[facility] [id number] 2016-04-01 10:44:00 2016-04-01 23:59:00 Outpatient Flanagan Durga [facility] M[facility] [id number] 2016-03-18 07:59:00 2016-03-18 23:59:00 Outpatient Flanagan Durga [facility] M[facility] [id number] 2015-06-18 10:34:00 2015-06-18 23:59:00 Outpatient Flanagan, Durga [facility] M[facility] [id number] 2014-11-13 09:33:00 2014-11-13 23:59:00 Outpatient FlanaganDevonteDurga [facility] M[facility] [id number] 2014-11-10 09:00:00 2014-11-10 23:59:00 Outpatient FlanaganDevonteDugra [facility] M[facility] [id number] 2014-03-13 09:06:00 2014-03-13 23:59:00 Outpatient FlanaganDevonteDurga [facility]IE MHIE [id number] 2013-10-07 08:59:00 2013-10-07 23:59:00 Outpatient Nicolas Neri [facility] MHIE [id number] Results Test Description Test Time Test Comments Results Result Comments Source CHEST SINGLE (PORTABLE) 2019-12-26 10:26:00 [facility] [address] [place], [place] [address] Patient Name: PEREZ VELAZQUEZ MR #: [id number] : 1945 Age/Sex: 74/F Req #: [id number] Adm Physician: Ordered by: VIVIAN NEWMAN DO Report #: [id number] Location: ER Room/Bed: Procedure: [id number] DX/CHEST SINGLE (PORTABLE) Exam Date: 12/26/19 Exam Time: 0950 REPORT STATUS: Signed EXAMINATION: CHEST SINGLE (PORTABLE) INDICATION: Hypoglycemia, fever COMPARISON: Chest radiograph of 03/19/2017 FINDINGS: LINES/TUBES:EKG leads overlie the chest. LUNGS:The lungs are well-inflated. No focal consolidation or pu lmonary edema. Unchanged surgical sutures overlie the lateral left thorax. PLEURA:No pleural effusion or pneumothorax. MEDIASTINUM:The cardiomediastinal silhouette appears normal in size and shape. Atherosclerotic calcifications of the thoracic aorta. BONES/SOFT TISSUES:No acute osseous injury. Old lateral right rib fracture deformities. ABDOMEN:No free air under the diaphragm. IMPRESSION: No focal pneumonia or pulmonary edema. Signed by: Olivia Welsh MD on 12/26/2019 10:28 AM Dictated By: OLIVIA WELSH MD 1028 Transcribed By: ALONDRA on 12/26/19 1028 COPY TO: VIVIAN NEWMAN DO GLUBED 2019-09-09 03:57:00 Test Item GLUBED (test code = GLUBED) 245 mg/dL 74-106 H Performed by certified milk bottling machine operator at [facility] URINALYSIS [id number] 03:34:00* Test Item Value Reference Range Interpretation [...] Urine Source? Clean Catch- CT C-SPINE W/O [id number] 02:31:00 Name: PEREZ VELAZQUEZ [facility] : 1945 Age/S: 74 / F [address] [facility] Unit #: [id number] Loc: [place] [address] Phys: Pepito Singh MD Acct: [id number] Di s Date: Status: REG ER PHONE #: Exam Date: 09/09/2019 0211 FAX #: Reason: dizzy fall EXAMS: CPT CODE: [id number] CT C-SPINE W/O CONTRAST 10377 EXAM: - CT C-SPINE W/O C ONTRAST [...] Technologist:BOO VENTURA CTDI: DLP: Trnscb Date/Time: 09/09/2019 (230) [email or web address] Orig Print D/T: S: 09/09/2019 (233) PAGE 1 Signed Report - CT HEAD/BRAIN W/O [id number] 02:24:00 Name: PEREZ VELAZQUEZ [facility] : 1945 Age/S: 74 / F [address] [facility] Unit #: [id number] Loc: [facility] [place] [address] Phys: Pepito Singh MD Acct: [id number] Di s Date: Status: REG ER PHONE #: [phone] Exam Date: 09/09/2019210 FAX #: Reason: dizzy fall EXAMS: CPT CODE: [id number] CT HEAD/BRAIN W/O CONT 83172 EXAM: - CT HEAD/BRAIN W/O CONT HISTORY: [...] CT CTDI: DLP: Trnscb Date/Time: 09/09/2019 (223) [email or web address] Orig Print D/T: S: 09/09/2019 (227) PAGE 1 Signed Report [id number] 01:56:00* Test Item Value Reference Range Interpretation Comments TROPONIN-I (test code = TROPI) <0.015 ng/mL 0-0.045 N BASIC METABOLIC [id number] 01:52:00* Test Item Value Reference Range Interpretation [...] CA) 8.5 mg/dL 8.5-10.1 N HEPATIC FUNCTION [id number] 01:52:00* Test Item Value Reference Range Interpretation [...] reference range due to change in reagent. [id number] 01:52:00* Test Item Value Reference Range Interpretation Comments LIPASE (test code = LIP) 81 U/L 73.0-393.0 N BASIC METABOLIC [id number] 01:38:00* Test Item Value Reference Range Interpretation [...] code = CA) mg/dL 8.5-10.1 HEPATIC FUNCTION [id number] 01:38:00* Test Item Value Reference Range Interpretation [...] TOTAL (test code = ALKP) IUnit/L 45-117 [id number] 01:38:00* Test Item Value Reference Range Interpretation Comments LIPASE (test code = LIP) U/L 73.0-393.0 CBC W/O [id number] 01:36:00* Test Item Value Reference Range Interpretation [...] 10.7 fL 6.7-11.0 N CHEST 2 VIEWS [facility] [address] [place] [address] Patient Name: PEREZ VELAZQUEZ MR #: [id number] : 1945 Age/Sex: 71/F Req #: [id number] Adm Physician: Ordered by: LORA RASMUSSEN MD Report #: [id number] Location: ER Room/Bed: Procedure: [id number] DX/CHEST 2 VIEWS Exam Date : 03/31/17 [...] COPY TO: LORA RASMUSSEN MD CT BRAIN [place] [address] Patient Name: PEREZ VELAZQUEZ MR #: [id number] : 1945 Age/Sex: 71/F Req #: [id number] Adm Physician: Ordered by: ADRIÁN CHAMBERLAIN Report #: [id number] Location: Room/Bed: Procedure: [id number] CT/CT BRAIN WO Exam Cezar e: 03/19/17 [...] on 03/19/17 1228 COPY TO: ADRIÁN CHAMBERLAIN [facility] (PORTABLE) [place] [address] Patient Name: PEREZ VELAZQUEZ MR #: [id number] : 1945 Age/Sex: 71/F Req #: [id number] Adm Physician: Ordered by: ADRIÁN CHAMBERLAIN Report #: [id number] Location: ER Room/Bed: Procedure: [id number] DX/CHEST SINGLE (PORTABL E) Exam Date: 03/19/17 [...] on 03/19/17 1213 COPY TO: ADRIÁN CHAMBERLAIN UNIL W/CXR [place] [address] Patient Name: PEREZ VELAZQUEZ MR #: [id number] : 1945 Age/Sex: 71/F Req #: [id number] [facility] Physician: Ordered by: MALIK GUTIERREZ SUPERVISOR LOADING Report #: [id number] Location: ER Room/ Bed: Procedure: [id number] DX/RIBS UNILAT W/CXR Exam Date: 01/12/17 Exam [...] JUDAH on 01/12/171717 COPY TO: MALIK GUTIERREZ NP CT BRAIN WO [place] [address] Patient Name: PEREZ VELAZQUEZ MR #: [id number] : 1945 Age/Sex: 71/F Req #: [id number] Adm Physician: Ordered by: HAMLET JANSEN MD Report #: [id number] Location: ER Room/Bed: Procedure: [id number] CT/CT BRAIN WO Exam Date: Exam Time: [...] TO: HAMLET JANSEN MD CT CERVICAL SPINE WO [place] [address] Patient Name: PEREZ VELAZQUEZ MR #: [id number] : 1945 Age/Sex: 71/F Req #: [id number] Adm Physician: Ordered by: HAMLET JANSEN MD Report #: [id number] Location: ER Room/Bed: Procedure: [id number] CT/CT CERVICAL SPINE WO Exam Date: 01/12/17 [...]
[2019-12-26 13:54] VITALS: BP 178/78
[2019-12-26 14:00] VITALS: BP 178/78
[2019-12-26] MEDS ORDERED: HYDRALAZINE HCL 20 MG/ML VIAL IV PRN (14:15)
[2019-12-26] MEDS ORDERED: POLYETHYLENE GLYCOL 3350 17 GM PACK PO PRN (14:15)
[2019-12-26] MEDS ORDERED: ACETAMINOPHEN 325 MG TAB PO PRN (14:15)
[2019-12-26] MEDS ORDERED: ONDANSETRON HCL INJ 2MG/ML 2ML 2 MG/ML VIAL IV PRN (14:15)
[2019-12-26 15:51] VITALS: BP 132/72
[2019-12-26] MEDS ORDERED: FAMOTIDINE 20 MG TAB PO SCH (16:30)
[2019-12-26] MEDS ORDERED: NON-FORMULARY MEDICATION ([Calcium Carbonate] 500 MG) PO SCH (17:00)
[2019-12-26] MEDS ORDERED: NON-FORMULARY MEDICATION ([Multivitamins/Minerals] 1 TAB) PO SCH (17:00)
[2019-12-26] MEDS: FAMOTIDINE 20 MG/2 ML VIAL IV SCH (17:29)
[2019-12-26] MEDS: METOPROLOL TARTRATE 25 MG TAB PO SCH (17:29)
[2019-12-26] MEDS: MULTIVITAMINS/MINERALS TAB PO SCH (17:29)
[2019-12-26] MEDS: FERROUS SULFATE 325 MG TAB PO SCH (17:29)
[2019-12-26] MEDS: CALCIUM CARBONATE 500 MG CHEWABLE TABS PO SCH (17:29)
[2019-12-26] MEDS: DOCUSATE SODIUM 100 MG CAP PO SCH (17:29)
[2019-12-26] MEDS: METOCLOPRAMIDE HCL 10 MG TAB PO SCH (17:29)
[2019-12-26] MEDS: ASCORBIC ACID 500 MG TAB PO SCH (17:30)
[2019-12-26] MEDS: D5.45%NS/KCL 20MEQ 1,000 ML IV SCH (17:30)
[2019-12-26] MEDS ORDERED: DEXTROSE 50% SYRINGE 50 ML IV PRN (18:00)
--- NOTE | 2019-12-26 19:06 | History and Physical ---
PCP: Dr. Deyvi Flanagan. OUTPATIENT SHORT ORDER FRY COOK: Dr. Madison. CONSULTING PHYSICIANS: Currently, no consulting physicians. CHIEF COMPLAINT: Low blood sugar at home. HISTORY OF PRESENT ILLNESS: The patient is a 74-year-old female, admitted via the emergency department with low fingerstick blood glucose of 28 mg/dL per EMS staff. The patient reports that she was eating Ramen noodles in an effort to keep her blood sugar up. She denies any falls, but admits that she has been dizzy. She has had both low blood sugar and low blood pressure lately. She states her systolic blood pressure has been 94/54. She reports that Dr. Neri did a colonoscopy on her last Monday, which only showed internal hemorrhoids. PAST MEDICAL HISTORY: Hyperlipidemia, type 2 diabetes mellitus, iron deficiency, diabetic neuropathy, hypothyroidism, hypertension, diabetic gastroparesis, distant history of falls, internal hemorrhoids, cerumen impactions. PAST SURGICAL HISTORY: At [facility], she had lung surgery to evaluate for cancer. At age 59, she had a right knee tumor removed. FAMILY HISTORY: Mother at age 91 of natural causes. The patient's father, twin brother, and oldest brother all had diabetes. SOCIAL HISTORY: The patient denies any previous use of tobacco, alcohol, or illicit drugs. She lives with her son and grandson. 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 She uses a Rollator at home. ALLERGIES: NO KNOWN DRUG ALLERGIES. HOME MEDICATIONS: Ascorbic acid 500 mg p.o. b.i.d., aspirin 81 mg daily, atorvastatin calcium 10 mg at bedtime, famotidine 20 mg b.i.d. before meals, ferrous sulfate 325 mg b.i.d. with meals, gabapentin 100 mg capsule p.o. at bedtime, Lantus 10 units subcu every morning, levothyroxine sodium 100 mcg daily, lisinopril 2.5 mg daily, metoclopramide 10 mg b.i.d., metoprolol tartrate 25 mg b.i.d., Protonix 40 mg daily, calcium carbonate 500 mg b.i.d., multivitamin b.i.d. The patient denies use of Januvia at home, although this is included on the list. REVIEW OF SYSTEMS: CONSTITUTIONAL: The patient denies any recent weight gain or weight loss. She admits to having chills, having cold arms. Denies fever. EYES: No complaints. EARS, NOSE, AND THROAT: The patient sees Dr. Garcia with ENT on an outpatient basis for cerumen impactions and last saw him in November for bilateral cerumen removal. She admits to having trouble swallowing. GASTROINTESTINAL: Her last BM was 12/25 this morning. NEUROLOGIC: The patient complains of headache, rated at 1/10 on a 0 to 10 pain scale as well as dizziness. 14-point review of systems was completed and the patient denies any problems with respiratory, genitourinary, psychiatric, integumentary, cardiovascular, musculoskeletal, endocrine, hematologic, immunological systems. PHYSICAL EXAMINATION: VITAL SIGNS: Temperature 97.9, heart rate 75, blood pressure 178/78, respirations 20, oxygen saturation 100%. Height 4 feet 10 inches. Weight 90 pounds. BMI 18.8. GENERAL: Supine, in no acute distress. LUNGS: Clear to auscultation. Respiratory pattern even and unlabored. No supplemental oxygen. HEENT: EOMI. NECK: Supple. No JVD, thyromegaly, or lymphadenopathy. CARDIOVASCULAR: Regular rate and rhythm. No murmur. ABDOMEN: Bowel sounds positive. Soft, nontender. No guarding. EXTREMITIES: No pitting edema. No clubbing, cyanosis, or marked swelling or signs of DVT. NEUROLOGICAL: GCS 15. Nonfocal. Alert and oriented x4 to person, place, time, and situation, very sharp. LABORATORY DATA: WBC 5.1, hemoglobin 9.2, hematocrit 28.1, RBC 3.06, platelets 211, neutrophils 62.6%. Sodium 137, potassium 3.6, chloride 101, CO2 of 25, anion gap 14.6, BUN 18, creatinine 0.93, estimated GFR 59, BUN to creatinine ratio 19, glucose 76, calcium 9, total bilirubin 0.4, AST 15, ALT 11, alkaline phosphatase 70, creatine kinase 63, CK-MB 1. Troponin I 0.006. Total protein 6.7, albumin 3.5. TSH 1.306. Urinalysis showed clear urine, pH 7, specific gravity 1.02, protein 2+, glucose 2+, ketones negative, trace amount of blood, negative for nitrites, negative for bilirubin, urobilinogen 0.2, leukocyte esterase negative, rbc 0 to 5, wbc 0 to 5, bacteria none, mucus few. Coronavirus PCR collected on 12/25, remains pending. On 12/25, chest x-ray was negative. No focal pneumonia or pulmonary edema. A 12-lead EKG showed normal sinus rhythm with a heart rate of 62. Fingerstick blood glucose level done about 03:00 p.m. today was 409. ASSESSMENT AND PLAN: 1. Uncontrolled type 2 diabetes mellitus with hypoglycemia and hyperglycemia, mild dehydration. Per patient, her fingerstick blood glucose level was 28 mg/dL. When checked by EMS, her fingerstick blood glucose level around 03:00 p.m. was 409 mg/dL. Lantus 4 units at bedtime started along with sliding scale insulin. Continue to monitor fingerstick blood glucose levels before meals and at bedtime. The patient will be placed on 2000 calorie ADA diet with Glucerna t.i.d. IV fluids D5 in half-normal saline with 20 mEq potassium chloride at 100 mL an hour. Potassium level within normal limits, but low normal at 3.6. 2. Uncontrolled hypertension. Blood pressure 178/78. We will resume her home dose of lisinopril 2.5 mg daily, metoprolol 25 mg p.o. b.i.d., and start p.r.n. IV hydralazine. Also, monitor blood pressure. 3. Iron deficiency anemia. Basic anemia workup in the morning. Monitor H and H. resume home dose of ferrous sulfate. 4. Hypothyroidism. TSH within normal limits at 1.306. Continue home dose of levothyroxine 100 mcg daily. 5. Dysphagia and diabetic gastroparesis. Speech Therapy to see the patient for a bedside swallow evaluation. The patient complains of difficulty swallowing. Resume home dose of metoclopramide. 6. Diabetic neuropathy with ambulatory dysfunction and dizziness. Resume home dose of gabapentin. Physical Therapy evaluation and treatment, regulation of blood pressure and correction of dehydration with IV fluids should help dizziness. 7. Hyperlipidemia. Resume home dose of atorvastatin. 8. Stated history of internal hemorrhoids. Monitor. We will take this into account when results of fecal occult blood test derive. 9. Borderline cachexia, BMI 18.8. Diet as above. 10. Prophylaxis, Protonix and SCDs. History and physical time spent 60 minutes. Billing code [id number]. Dictated by Carson Kay, HALF SOLE FITTER MD SUSAN Finnegan/RICHARDL /[id number]
[2019-12-26 20:00] VITALS: BP 147/86
[2019-12-26] MEDS ORDERED: MIDODRINE HCL2.5 MG PO (20:41)
[2019-12-26] MEDS ORDERED: B12 ACTIVE1000 MCG PO (20:56)
[2019-12-26] MEDS ORDERED: INSULIN GLARGINE 100 UNITS/ML VIAL SQ SCH (21:00)
[2019-12-26] MEDS ORDERED: TEMAZEPAM 15 MG CAP PO PRN (21:00)
[2019-12-26] MEDS: GABAPENTIN 100 MG CAP PO SCH (21:00)
[2019-12-26] MEDS: ATORVASTATIN 10 MG TAB PO SCH (21:28)
[2019-12-26] MEDS: INSULIN LISPRO 100 UNIT/1 ML 3ML VIAL SQ SCH (21:29)
[2019-12-27] VITALS (8 sets, daily range): BP systolic 122–171; BP diastolic 54–64
[2019-12-27] MEDS: LEVOTHYROXINE SODIUM 100 MCG TAB PO SCH (05:46)
[2019-12-27] MEDS: D5.45%NS/KCL 20MEQ 1,000 ML IV SCH (05:47)
[2019-12-27 06:12] LABS: BASOPHILS % 0.4 % (0.0-1.0); EOSINOPHILS # (AUTO) 0.1 (0.0-0.4); EOSINOPHILS % 2.3 % (0.0-6.0); HEMATOCRIT 29.3 % (34.2-44.1); HEMOGLOBIN 9.6 g/dL (12.0-16.0); LYMPHOCYTES # (AUTO) 1.5 (1.0-3.2); MEAN CORPUSCULAR HEMOGLOBIN 30.1 pg (28-32); MEAN CORPUSCULAR HGB CONC 32.8 g/dL (31-35); MEAN CORPUSCULAR VOLUME 91.8 fL (81-99); MONOCYTES # (AUTO) 0.4 (0.2-0.8); MONOCYTES % 8.8 % (4.4-11.3); NEUTROPHILS # (AUTO) 2.8 (2.1-6.9); NEUTROPHILS % 57.3 % (38.7-80.0); PLATELET COUNT 243 x10e3/uL (140-360); RED BLOOD COUNT 3.19 x10e6/uL (3.6-5.1); RED CELL DISTRIBUTION WIDTH 12.5 % (11.7-14.4)
[2019-12-27 06:34] LABS: ALBUMIN 3.3 g/dL (3.5-5.0); ANION GAP 13.7 mmol/L (8-16); CALCIUM 8.7 mg/dL (8.4-10.2); CREATININE, SERUM 1.46 mg/dL (0.57-1.11); POTASSIUM 4.7 mmol/L (3.5-5.1)
[2019-12-27 07:24] LABS: FERRITIN 80.44 ng/mL (4.63-204.00)
[2019-12-27 07:38] LABS: CHOL/HDL RATIO 2.5 (3.0-3.6); MAGNESIUM 1.6 MG/DL (1.3-2.1); PHOSPHORUS 3.7 MG/DL (2.3-4.7)
[2019-12-27] MEDS: FERROUS SULFATE 325 MG TAB PO SCH ×2 (08:44→16:34)
[2019-12-27] MEDS: FAMOTIDINE 20 MG/2 ML VIAL IV SCH ×2 (08:44→16:34)
[2019-12-27] MEDS: METOCLOPRAMIDE HCL 10 MG TAB PO SCH ×2 (08:44→16:34)
[2019-12-27] MEDS: ASPIRIN 81 MG CHEW TAB PO SCH (08:44)
[2019-12-27] MEDS: ASCORBIC ACID 500 MG TAB PO SCH ×2 (08:44→16:35)
[2019-12-27] MEDS: MULTIVITAMINS/MINERALS TAB PO SCH ×2 (08:44→16:35)
[2019-12-27] MEDS: CALCIUM CARBONATE 500 MG CHEWABLE TABS PO SCH ×2 (08:44→16:35)
[2019-12-27] MEDS: PANTOPRAZOLE SOD 40 MG TABEC PO SCH (08:45)
[2019-12-27] MEDS: DOCUSATE SODIUM 100 MG CAP PO SCH ×2 (08:45→16:34)
[2019-12-27] MEDS: METOPROLOL TARTRATE 25 MG TAB PO SCH ×2 (08:48→16:35)
[2019-12-27] MEDS ORDERED: LISINOPRIL 2.5 MG TAB PO SCH (09:00)
[2019-12-27] MEDS ORDERED: LEVOTHYROXINE SODIUM 75 MCG TAB PO SCH (09:00)
[2019-12-27] MEDS ORDERED: SITAGLIPTIN 100 MG TAB PO SCH (09:00)
[2019-12-27] MEDS: INSULIN LISPRO 100 UNIT/1 ML 3ML VIAL SQ SCH ×4 (10:26→21:00)
[2019-12-27] MEDS: SODIUM CHLORIDE 0.9% 1000ML 1,000 ML IV SCH (16:34)
[2019-12-27] MEDS: GABAPENTIN 100 MG CAP PO SCH (21:45)
[2019-12-27] MEDS: ATORVASTATIN 10 MG TAB PO SCH (21:45)
[2019-12-27] MEDS: INSULIN GLARGINE 100 UNITS/ML VIAL SQ SCH (21:45)
[2019-12-28] VITALS (8 sets, daily range): BP systolic 97–153; BP diastolic 46–78
[2019-12-28] MEDS: LEVOTHYROXINE SODIUM 100 MCG TAB PO SCH (05:50)
[2019-12-28] MEDS: SODIUM CHLORIDE 0.9% 1000ML 1,000 ML IV SCH ×3 (05:50→20:45)
[2019-12-28 06:07] LABS: BASOPHILS % 0.6 % (0.0-1.0); EOSINOPHILS # (AUTO) 0.2 (0.0-0.4); EOSINOPHILS % 2.8 % (0.0-6.0); HEMATOCRIT 27.5 % (34.2-44.1); HEMOGLOBIN 8.9 g/dL (12.0-16.0); LYMPHOCYTES # (AUTO) 2.3 (1.0-3.2); LYMPHOCYTES % 41.7 % (18.0-39.1); MEAN CORPUSCULAR HEMOGLOBIN 29.9 pg (28-32); MEAN CORPUSCULAR HGB CONC 32.4 g/dL (31-35); MEAN CORPUSCULAR VOLUME 92.3 fL (81-99); MONOCYTES # (AUTO) 0.5 (0.2-0.8); MONOCYTES % 8.5 % (4.4-11.3); NEUTROPHILS # (AUTO) 2.5 (2.1-6.9); PLATELET COUNT 211 x10e3/uL (140-360); RED BLOOD COUNT 2.98 x10e6/uL (3.6-5.1); RED CELL DISTRIBUTION WIDTH 12.6 % (11.7-14.4)
[2019-12-28 06:33] LABS: ANION GAP 13.1 mmol/L (8-16); CALCIUM 8.6 mg/dL (8.4-10.2); CREATININE, SERUM 1.22 mg/dL (0.57-1.11); POTASSIUM 4.1 mmol/L (3.5-5.1)
[2019-12-28] MEDS: INSULIN LISPRO 100 UNIT/1 ML 3ML VIAL SQ SCH ×4 (08:30→21:05)
[2019-12-28] MEDS: CALCIUM CARBONATE 500 MG CHEWABLE TABS PO SCH ×2 (09:18→16:41)
[2019-12-28] MEDS: MULTIVITAMINS/MINERALS TAB PO SCH ×2 (09:18→16:41)
[2019-12-28] MEDS: FAMOTIDINE 20 MG/2 ML VIAL IV SCH ×2 (09:18→16:41)
[2019-12-28] MEDS: FERROUS SULFATE 325 MG TAB PO SCH ×2 (09:18→16:41)
[2019-12-28] MEDS: PANTOPRAZOLE SOD 40 MG TABEC PO SCH (09:18)
[2019-12-28] MEDS: METOCLOPRAMIDE HCL 10 MG TAB PO SCH ×2 (09:18→16:41)
[2019-12-28] MEDS: ASCORBIC ACID 500 MG TAB PO SCH ×2 (09:18→16:41)
[2019-12-28] MEDS: DOCUSATE SODIUM 100 MG CAP PO SCH ×2 (09:18→16:41)
[2019-12-28] MEDS: ASPIRIN 81 MG CHEW TAB PO SCH (09:18)
[2019-12-28] MEDS: METOPROLOL TARTRATE 25 MG TAB PO SCH ×2 (09:23→16:42)
[2019-12-28] MEDS ORDERED: MAGNESIUM SULFATE 2GM/50ML 50 ML IV ONE (17:30)
[2019-12-28] MEDS: ATORVASTATIN 10 MG TAB PO SCH (20:50)
[2019-12-28] MEDS: GABAPENTIN 100 MG CAP PO SCH (20:50)
[2019-12-28] MEDS: INSULIN GLARGINE 100 UNITS/ML VIAL SQ SCH (21:05)
[2019-12-29] VITALS: BP 116/51
[2019-12-29 04:00] VITALS: BP 162/58
[2019-12-29] MEDS: SODIUM CHLORIDE 0.9% 1000ML 1,000 ML IV SCH (04:31)
[2019-12-29 05:27] LABS: BASOPHILS % 0.4 % (0.0-1.0); EOSINOPHILS # (AUTO) 0.3 (0.0-0.4); EOSINOPHILS % 4.6 % (0.0-6.0); HEMATOCRIT 28.6 % (34.2-44.1); HEMOGLOBIN 9.4 g/dL (12.0-16.0); LYMPHOCYTES # (AUTO) 1.7 (1.0-3.2); LYMPHOCYTES % 31.4 % (18.0-39.1); MEAN CORPUSCULAR HEMOGLOBIN 30.1 pg (28-32); MEAN CORPUSCULAR HGB CONC 32.9 g/dL (31-35); MEAN CORPUSCULAR VOLUME 91.7 fL (81-99); MONOCYTES # (AUTO) 0.5 (0.2-0.8); MONOCYTES % 8.5 % (4.4-11.3); NEUTROPHILS % 54.9 % (38.7-80.0); PLATELET COUNT 210 x10e3/uL (140-360); RED BLOOD COUNT 3.12 x10e6/uL (3.6-5.1); RED CELL DISTRIBUTION WIDTH 12.8 % (11.7-14.4)
[2019-12-29 05:58] LABS: ANION GAP 13.3 mmol/L (8-16); CALCIUM 8.3 mg/dL (8.4-10.2); CREATININE, SERUM 1.14 mg/dL (0.57-1.11); PHOSPHORUS 4.1 MG/DL (2.3-4.7); POTASSIUM 4.3 mmol/L (3.5-5.1)
[2019-12-29] MEDS: LEVOTHYROXINE SODIUM 100 MCG TAB PO SCH (06:18)
[2019-12-29 08:00] VITALS: BP 166/58
[2019-12-29] MEDS: INSULIN LISPRO 100 UNIT/1 ML 3ML VIAL SQ SCH (08:00)
[2019-12-29] MEDS ORDERED: Multivitamins/Minerals PO (08:21)
[2019-12-29] MEDS ORDERED: METOCLOPRAMIDE10 MG PO (08:21)
[2019-12-29] MEDS ORDERED: Insulin Glargine SQ (08:21)
[2019-12-29] MEDS ORDERED: ASPIRIN CHEW81 MG PO (08:21)
[2019-12-29] MEDS ORDERED: ASCORBIC ACID500 MG PO (08:21)
[2019-12-29] MEDS ORDERED: LOPRESSOR25 MG PO (08:21)
[2019-12-29] MEDS ORDERED: GABAPENTIN100 MG PO (08:21)
[2019-12-29] MEDS ORDERED: Insulin Lispro SQ (08:21)
[2019-12-29 08:41] VITALS: BP 166/58
[2019-12-29] MEDS: DOCUSATE SODIUM 100 MG CAP PO SCH (09:00)
[2019-12-29] MEDS: PANTOPRAZOLE SOD 40 MG TABEC PO SCH (09:10)
[2019-12-29] MEDS: METOPROLOL TARTRATE 25 MG TAB PO SCH (09:10)
[2019-12-29] MEDS: METOCLOPRAMIDE HCL 10 MG TAB PO SCH (09:10)
[2019-12-29] MEDS: CALCIUM CARBONATE 500 MG CHEWABLE TABS PO SCH (09:10)
[2019-12-29] MEDS: ASCORBIC ACID 500 MG TAB PO SCH (09:10)
[2019-12-29] MEDS: FERROUS SULFATE 325 MG TAB PO SCH (09:10)
[2019-12-29] MEDS: MULTIVITAMINS/MINERALS TAB PO SCH (09:10)
[2019-12-29] MEDS: ASPIRIN 81 MG CHEW TAB PO SCH (09:10)
[2019-12-29] MEDS: FAMOTIDINE 20 MG/2 ML VIAL IV SCH (09:10)
[2019-12-29] MEDS ORDERED: SODIUM CHLORIDE 0.9% 250ML 250 ML IV ONE (09:15)
--- NOTE | 2019-12-29 11:41 | Discharge Summary ---
PCP: Dr. Deyvi Flanagan. OUTPATIENT NEON ELECTRICIAN: Dr. Madison. CONSULTING PHYSICIANS: None. PERTINENT HISTORY AND PHYSICAL FINDINGS: The patient is a 74-year-old female, who was admitted via the emergency department with low blood glucose of 28 mg/dL per EMS staff. The patient had reported that she was eating Ramen noodles in an effort to keep her blood sugar up. She denies any falls, but admits that she had been dizzy. She has a history of dizziness and takes midodrine at home. She has had low blood sugar and low blood pressure lately. She states her systolic blood pressure has been as low as 94 systolic, 54 diastolic. She reports that Dr. Neri with Gastroenterology did a colonoscopy on her last Monday, which only showed internal hemorrhoids. Please see dictated history and physical for past medical history, surgical history, family history, and social history. ALLERGIES: SHE HAS NO KNOWN ALLERGIES. ADMITTING DIAGNOSES: 1. Uncontrolled type 2 diabetes mellitus with hypoglycemia and hyperglycemia, mild dehydration. 2. Uncontrolled hypertension with blood pressure 178/78. 3. Iron deficiency anemia. 4. Hypothyroidism. 5. Dysphagia and diabetic gastroparesis. 6. Diabetic neuropathy and ambulatory dysfunction and dizziness. 7. Hyperlipidemia. 8. Stated history of internal hemorrhoids. 9. Borderline cachexia with BMI 18.8. DISCHARGE DIAGNOSES: 1. Uncontrolled type 2 diabetes mellitus with hypoglycemia and hyperglycemia, mild dehydration. 2. Uncontrolled hypertension with blood pressure 178/78. 3. Iron deficiency anemia. 4. Hypothyroidism. 5. Dysphagia and diabetic gastroparesis. 6. Diabetic neuropathy and ambulatory dysfunction and dizziness. 7. Hyperlipidemia. 8. Stated history of internal hemorrhoids. 9. Borderline cachexia with BMI 18.8. 10. Acute hypomagnesemia, improved. 11. Uncontrolled hypertension, improving. On admission, her white blood cell count 5.1, hemoglobin 9.2, hematocrit 29.1, and platelets 211. BUN 18, creatinine 0.93, and estimated GFR 59. TSH 1.306. Fingerstick blood glucose level 57. On the , her blood sugar was as high as 424. At that time, she was on 4 units of Lantus insulin at bedtime and low dose insulin sliding scale. Her Lantus insulin was changed to 10 units at bedtime and she was on low dose lispro regular insulin sliding scale before meals and at bedtime. On 12/26, fingerstick blood glucose levels with that change were 342, then 361, then 157. Yesterday on 12/27, her fingerstick blood glucose levels were 176, then 218 and 285, and this morning her blood sugar was 322. Thus, we will continue her on her current regimen of Lantus 10 units at bedtime and lispro regular insulin low dose sliding scale for now and encourage her to drink more water, as she is slightly more dehydrated now than when she came in despite receiving IV fluids at 100 mL an hour during her stay. Today, her BUN is 16, creatinine 1.14, and estimated GFR 46. On admission, BUN 18, creatinine 0.93, estimated GFR 59. Prior to leaving, a 250 mL bolus of normal saline was ordered to be given prior to her departure. Hemoglobin A1c was 9.5% on 12/26. On 12/26, her magnesium level was 1.6 and this was repleted with 2 g of magnesium sulfate IV. Today, her magnesium level is 2.0. Her highest creatinine was 1.46 on 12/26. Initial documented blood pressure at 9:12 in the morning on 12/25 was 154/72. At 1354 hours that same day her blood pressure of 178/78, then later on at 1551 hours, blood pressure 132/72. Her blood pressure tends to run high in the afternoon on 12/26 at 1635 hours, blood pressure 171/58. Her lowest blood pressure was 97/78 at 12:24 on 12/27. Today on the day of discharge, vital signs; temperature 97.7, heart rate 68, respirations 20, blood pressure 166/58, and oxygen saturation 98%. Her midodrine has not been utilized here and in fact, she has been on metoprolol tartrate 25 mg p.o. b.i.d. Thus for now, we will take her off the midodrine, keep her on the metoprolol. On 12/26, she refused her evening dose of regular insulin and instead took a lower dose. Her blood sugar the next morning was 402. Thus, she was encouraged not to decline any insulin or change anything, which she did not during the rest of her stay. Serum glucose on the labs today 244 and fingerstick blood glucose level this morning 322. The patient is encouraged to keep a diary of her blood sugars before meals and at bedtime, and to call Dr. Madison' office in the morning for insulin adjustment. I have purposely left her blood sugar a bit elevated, as she was admitted with a blood sugar per EMS of 28 mg/dL. She had complaints of swallowing on 12/26. Speech therapist performed a bedside swallow evaluation. Per the speech therapist favorable for safe p.o. secondary to no clinical signs and symptoms of aspiration at bedside. No further speech and language intervention indicated at this time. 12/25, chest x-ray showed no focal pneumonia or pulmonary edema. A 12-lead EKG showed normal sinus rhythm with a heart rate of 62. Per physical therapy note on or about 12/25, the patient ambulated 320 feet with rolling walker with moderate independence, steady gait and no loss of balance was noted. She was able to ascend and descend 12 steps with moderate independence. Lisinopril 2.5 mg daily was held due to her renal function. Basic anemia workup was within normal limits. TSH was within normal limits at 1.306 and her home dose of levothyroxine was continued at 100 mcg daily. Home dose of gabapentin was resumed. Orthostatic vital signs done on 12/28/2019 at 2000 hours supine 153/54, sitting 144/61, standing 137/46. The patient has complaints of dizziness are longstanding. When I saw her this morning, she also complained of being cold in the left arm, which has been going on for years. The patient to follow up with her PCP, Dr. Flanagan in 1 to 2 weeks. The patient is to call Dr. Madison, her automatic coil machine operator tomorrow morning to schedule an appointment. Activity level as tolerated. No change in physical exam. Other labs today; sodium 137, potassium 4.3, chloride 102, CO2 26, BUN 16, creatinine 1.14, estimated GFR 46, and serum glucose 244. WBCs 5.44, hemoglobin 9.4, hematocrit 28.6, and platelets 210. Dictated by Carson Kay NP Grayson Posada MD [facility] /[id number]
== END 2019-12-29 12:55 | disposition home or self-care (01) ==
LOC: ER 09:16 → ERHOLD 12:00 → MED/SURG2 13:50
PROVIDERS: ADMIT Internal Medicine; ATTEND Internal Medicine
DX: S06.0X1A Concussion with loss of consciousness of 30 minutes or less, initial encounter (principal); W19.XXXA Unspecified fall, initial encounter; Z11.59 Encounter for screening for other viral diseases
CPT/HCPCS: 36415 ×4; 71045; 80048 ×2; 80053 ×2; 80061; 81001; 82550; 82553; 82607; 82728; 82746; 82948 ×4; 83036; 83540; 83735 ×2; 84100 ×2; 84443; 84466; 84484; 85025 ×4; 85045; 92526; 92610; 93005; 96372; 97116; 97161; 99284; G0378 ×4; J3475; J7030 ×2; J8597 ×4; S0164 ×3; U0002